=== PATIENT | female | born 1950 | race Caucasian/White ===

== ENCOUNTER 2017-12-10 16:19 | Inpatient (IN) | payer MEDICARE, OTHER ==
[~2017-12-10] VITALS: Ht 165.1 cm; Wt 70.3 kg
[~2017-12-10 16:19] MED LIST: ALBU90OI INH; ASPI325 PO; Amoxicillin500 MG PO; BUDE6HFA INH; BUPR150ER PO; DICL25ER PO; GABA300 PO; HYDR1TAB94; HYDR1TAB94 PO; Inderal40 MG PO; OXYACE5T PO; PRED20 PO; TRAM50 PO; TRAZ50 PO
[2017-12-15] MEDS ORDERED: TIOT18 INH (14:14)
[2017-12-15] MEDS ORDERED: VARE1 PO (14:15)
[2017-12-15] MEDS ORDERED: Hair, Skin & N1 EACH PO (14:16)
[2017-12-15] MEDS ORDERED: MAGNESIUM PO (14:17)
[2017-12-15] MEDS ORDERED: CALCIUM PO (14:17)
[2017-12-15] MEDS ORDERED: Hydrocodone-Ap1 EA23 PO (14:17)
[2017-12-26 05:48] LABS: BASOPHILS ABSOLUTE AUTO 0.01 K/mm3 (0.00-0.23); BASOPHILS PERCENT AUTO 0 % (0-2); EOSINOPHILS ABSOLUTE AUTO 0.01 K/mm3 (0.00-0.68); EOSINOPHILS PERCENT AUTO 0 % (0-6); Hematocrit 26.2 % (33.0-51.0); Hemoglobin 8.6 g/dL (11.5-16.0); IMMATURE GRAN ABSOLUTE AUTO 0.04 K/mm3 (0.00-0.10); IMMATURE GRAN PERCENT AUTO 0 % (0-1); LYMPHOCYTES PERCENT AUTO 6 % (21-46); MONOCYTES ABSOLUTE AUTO 0.74 K/mm3 (0.16-1.47); MONOCYTES PERCENT AUTO 6 % (4-13); Mean Corpuscular HGB 30.7 pg (26.0-34.0); Mean Corpuscular HGB Conc 32.8 g/dL (31.5-36.5); Mean Platelet Volume 9.4 fL (9.1-12.4); NEUTROPHILS PERCENT AUTO 87 % (41-73); Platelet Count 162 K/mm3 (150-400); RDW Coefficient Variation 12.7 % (11.7-14.2); RDW Standard Deviation 43.8 fL (35.1-46.3)
[2017-12-26 06:09] LABS: Mean Corpuscular Volume 94 fL (80-100)
[2017-12-26 06:15] LABS: Bun/Creatinine Ratio 17.6 (12.0-20.0); Calcium, Blood 8.2 mg/dL (8.5-10.1); Creatinine, Blood 1.02 mg/dL (0.40-1.00); Potassium, Blood 3.9 mmol/L (3.5-5.5)
[2017-12-27] MEDS ORDERED: ASPI325EC PO (15:02)
[2017-12-27] MEDS ORDERED: Percocet 5-3251 EACH PO (15:56)
== END 2017-12-27 16:35 | disposition home health service (06) | DRG 470 ==
LOC: SURS 12-25 09:00 → PRE IP 12-25 10:30 → SURS 12-25 15:53
PROVIDERS: Orthopaedic Surgery
PROC: BQ101ZZ Fluoroscopy of Right Hip using Low Osmolar Contrast (ICD-10-PCS; 2017-12-25)
PROC: 0SR904Z Replacement of Right Hip Joint with Ceramic on Polyethylene Synthetic Substitute, Open Approach (ICD-10-PCS; principal; 2017-12-25 10:30)
DX: M16.11 Unilateral primary osteoarthritis, right hip (principal); J44.9 Chronic obstructive pulmonary disease, unspecified; G89.29 Other chronic pain; M54.40 Lumbago with sciatica, unspecified side; Z79.899 Other long term (current) drug therapy; Z87.891 Personal history of nicotine dependence
CPT/HCPCS: 36415; 72170; 80048; 85025; 86850; 86900; 86901; 88300; 97110; 97116; 97162; 97530; C1776; G8978; G8979; G8980; J0171; J0690; J0735; J1170; J1885; J2250; J2370; J2405; J2710; J2795; J3010; J7120

== ENCOUNTER 2018-01-09 11:38 | Emergency (ER) | payer MEDICARE, OTHER ==
[~2018-01-09] VITALS: Ht 165.1 cm; Wt 70.3 kg
[~2018-01-09 11:38] MED LIST changes: +ASPI325EC PO; +CALCIUM PO; +Hair, Skin & N1 EACH PO; +Hydrocodone-Ap1 EA23 PO; +MAGNESIUM PO; +Percocet 5-3251 EACH PO; +TIOT18 INH; +VARE1 PO
[2018-01-09] MEDS ORDERED: BACL10 PO (13:27)
[2018-01-09] MEDS ORDERED: Voltaren100 GM TOP (13:27)
[2018-01-09] MEDS ORDERED: Hydrocodone-Ap1 EA23 PO (13:30)
[2018-01-09 13:43] LABS: BASOPHILS ABSOLUTE AUTO 0.06 K/mm3 (0.00-0.23); BASOPHILS PERCENT AUTO 1 % (0-2); EOSINOPHILS ABSOLUTE AUTO 0.12 K/mm3 (0.00-0.68); EOSINOPHILS PERCENT AUTO 2 % (0-6); Hemoglobin 11.1 g/dL (11.5-16.0); IMMATURE GRAN ABSOLUTE AUTO 0.02 K/mm3 (0.00-0.10); IMMATURE GRAN PERCENT AUTO 0 % (0-1); LYMPHOCYTES ABSOLUTE AUTO 1.66 K/mm3 (0.84-5.20); LYMPHOCYTES PERCENT AUTO 22 % (21-46); MONOCYTES ABSOLUTE AUTO 0.66 K/mm3 (0.16-1.47); MONOCYTES PERCENT AUTO 9 % (4-13); Mean Corpuscular HGB 30.2 pg (26.0-34.0); Mean Corpuscular HGB Conc 32.6 g/dL (31.5-36.5); Mean Corpuscular Volume 93 fL (80-100); Mean Platelet Volume 9.3 fL (9.1-12.4); NEUTROPHILS ABSOLUTE AUTO 4.96 K/mm3 (1.96-9.15); NEUTROPHILS PERCENT AUTO 66 % (41-73); Platelet Count 309 K/mm3 (150-400); RDW Coefficient Variation 12.6 % (11.7-14.2); Red Blood Cell Count 3.67 M/mm3 (3.80-5.20); White Blood Cell Count 7.48 K/mm3 (4.00-11.30)
[2018-01-09 14:02] LABS: Alanine Aminotransfer (ALT/SGP 16 U/L (12-78); Albumin, Blood 3.8 g/dL (3.4-5.0); Albumin/Globulin Ratio 1.1 (0.8-1.8); Alk Phos 129 U/L (50-136); Anion Gap 10 mmol/L (6-16); Aspartate Aminotrans (AST/SGOT 10 U/L (12-37); Bilirubin, Total 0.4 mg/dL (0.1-1.0); Blood Urea Nitrogen 17 mg/dL (8-24); Bun/Creatinine Ratio 19.8 (12.0-20.0); CO2, Blood 25 mmol/L (21-32); Calcium, Blood 9.2 mg/dL (8.5-10.1); Chloride, Blood 106 mmol/L (98-108); Creatinine, Blood 0.86 mg/dL (0.40-1.00); Globulin, Blood 3.6 g/dL (2.2-4.0); Glomerular Filtration Rate >60 (60-); Glucose, Blood 95 mg/dL (70-99); Potassium, Blood 3.8 mmol/L (3.5-5.5); Sodium, Blood 141 mmol/L (136-145); Total Protein, Blood 7.4 g/dL (6.4-8.2)
== END 2018-01-09 17:04 | disposition home or self-care (01) ==
LOC: ER 11:38
PROVIDERS: Emergency Medicine
DX: M96.842 Postprocedural seroma of a musculoskeletal structure following a musculoskeletal system procedure (principal); J44.9 Chronic obstructive pulmonary disease, unspecified; K21.9 Gastro-esophageal reflux disease without esophagitis; F32.9 Major depressive disorder, single episode, unspecified; F41.9 Anxiety disorder, unspecified; Z79.899 Other long term (current) drug therapy; Z79.51 Long term (current) use of inhaled steroids; Z96.641 Presence of right artificial hip joint
CPT/HCPCS: 36415; 72192; 80053; 85025; 85651; 86141; 99284

== ENCOUNTER → 2018-01-12 | Outpatient (CLI) | payer MEDICARE, OTHER ==
[~2018-01-12] MED LIST changes: +BACL10 PO; +Voltaren100 GM TOP
[2018-01-12 14:45] LABS: RBC Count, Synovial Fluid 10000 /mm3 (0-0); WBC Count, Synovial Fluid 2031 /mm3 (0-180)
[2018-01-12 15:10] LABS: Color, Synovial Fluid Yellow (None-P Yel); Lymphs, Synovial Fluid 99 % (0-15); Monocytes/Macrophages, Synovia 1 % (0-65)
[2018-01-12 15:11] LABS: Appearance, Synovial Fluid Clear (Clear)
[2018-01-12 15:12] LABS: Neutrophils, Synovial Fluid 0 % (0-24)
== END | disposition home or self-care (01) ==
LOC: LAB SHORT 14:00 → LAB 14:00
PROVIDERS: Orthopaedic Surgery
DX: M16.11 Unilateral primary osteoarthritis, right hip (principal); Z96.641 Presence of right artificial hip joint
CPT/HCPCS: 87070; 87075; 87205; 89051

== ENCOUNTER 2018-01-19 | Emergency (ER) | END 2018-01-19 16:24 | disposition home or self-care (01) ==

== ENCOUNTER 2018-05-07 21:41 | Observation (INO) | payer MEDICARE, OTHER ==
[~2018-05-07] VITALS: Ht 165.1 cm; Wt 68.0 kg
== END 2018-05-08 08:37 | disposition home or self-care (01) ==
LOC: ER 21:41 → EOR 21:42
DX: F10.129 Alcohol abuse with intoxication, unspecified (principal); S09.90XA Unspecified injury of head, initial encounter; S01.81XA Laceration without foreign body of other part of head, initial encounter; F17.210 Nicotine dependence, cigarettes, uncomplicated; Z79.899 Other long term (current) drug therapy; Z87.01 Personal history of pneumonia (recurrent); W08.XXXA Fall from other furniture, initial encounter
CPT/HCPCS: 12011; 70450; 72125; 90714; 99285-25; G0378

== ENCOUNTER 2019-01-27 10:26 | Inpatient (IN) | payer MEDICARE, OTHER ==
[~2019-01-27] VITALS: Ht 154.9 cm; Wt 77.2 kg
[~2019-01-27 10:26] MED LIST changes: +ALPR.25 PO; +Aspirin EC81 MG PO; +BENZ100A PO; +DULERA 200 MCG/13 GM INH; +NICO21TP TOP; +Oxycodone-Apap1 EAC3 PO; +PANT40 PO
[2019-01-27 11:17] LABS: PO2 Arterial 371 mmHg (80-100)
[2019-01-27 11:18] LABS: PCO2 Arterial 84 mmHg (35-45); pH Blood Arterial 7.07 (7.35-7.45)
--- NOTE | 2019-01-27 12:17 | NUR ---
ADMIT: PT ADMITTED TO ICU 7 FROM ED. PT INTUBATED, WAKING UP AND GETTING AGITATED SO PROPOFOL INCREASED. OGT HOOKED UP TO LIS. DR. ROSEN NOTIFIED OF CONSULT AND CAME TO THE BEDSIDE. PT'S SO RASHID PHONED AND WAS GIVEN AN UPDATE. PT RESTING QUIETLY NOW. CONTINUE TO MONITOR.
[2019-01-27] MEDS ORDERED: SERT50 PO (12:45)
[2019-01-27 12:55] LABS: BASOPHILS ABSOLUTE AUTO 0.04 K/mm3 (0.00-0.23); BASOPHILS PERCENT AUTO 0 % (0-2); EOSINOPHILS ABSOLUTE AUTO 0.11 K/mm3 (0.00-0.68); EOSINOPHILS PERCENT AUTO 1 % (0-6); Hematocrit 42.9 % (33.0-51.0); IMMATURE GRAN ABSOLUTE AUTO 0.15 K/mm3 (0.00-0.10); IMMATURE GRAN PERCENT AUTO 1 % (0-1); LYMPHOCYTES PERCENT AUTO 8 % (21-46); MONOCYTES ABSOLUTE AUTO 1.15 K/mm3 (0.16-1.47); MONOCYTES PERCENT AUTO 5 % (4-13); Mean Corpuscular HGB Conc 30.3 g/dL (31.5-36.5); Mean Corpuscular Volume 99 fL (80-100); Mean Platelet Volume 9.8 fL (9.1-12.4); NEUTROPHILS ABSOLUTE AUTO 18.21 K/mm3 (1.96-9.15); NEUTROPHILS PERCENT AUTO 85 % (41-73); Platelet Count 226 K/mm3 (150-400); RDW Coefficient Variation 12.8 % (11.7-14.2); Red Blood Cell Count 4.34 M/mm3 (3.80-5.20); White Blood Cell Count 21.36 K/mm3 (4.00-11.30)
[2019-01-27 13:12] LABS: Alanine Aminotransfer (ALT/SGP 22 U/L (12-78); Albumin, Blood 3.8 g/dL (3.4-5.0); Albumin/Globulin Ratio 1.1 (0.8-1.8); Alk Phos 81 U/L (50-136); Anion Gap 8 mmol/L (6-16); Aspartate Aminotrans (AST/SGOT 18 U/L (12-37); Bilirubin, Total 0.4 mg/dL (0.1-1.0); Blood Urea Nitrogen 18 mg/dL (8-24); Bun/Creatinine Ratio 19.5 (12.0-20.0); CO2, Blood 22 mmol/L (21-32); Chloride, Blood 110 mmol/L (98-108); Creatinine, Blood 0.93 mg/dL (0.40-1.00); Globulin, Blood 3.6 g/dL (2.2-4.0); Glomerular Filtration Rate >60 (60-); Glucose, Blood 216 mg/dL (70-99); Potassium, Blood 3.8 mmol/L (3.5-5.5); Sodium, Blood 140 mmol/L (136-145); Total Protein, Blood 7.4 g/dL (6.4-8.2)
[2019-01-27 14:02] LABS: pH Blood Arterial 7.22 (7.35-7.45)
[2019-01-27 14:03] LABS: PCO2 Arterial 53.2 mmHg (35-45); PO2 Arterial 104 mmHg (80-100)
--- NOTE | 2019-01-27 15:33 | NUR ---
PT'S SBP HAS DROPPED INTO THE 80S WITH MAP IN THE 50S. PROPOFOL TITRATED DOWN AND BP REMAINS LOW. DR. ROSEN NOTIFIED AND ORDER RECEIVED FOR 500ML NS BOLUS, INFUSING NOW.
[2019-01-27 17:03] LABS: PCO2 Arterial 43.6 mmHg (35-45); PO2 Arterial 77.4 mmHg (80-100)
[2019-01-27 17:04] LABS: pH Blood Arterial 7.24 (7.35-7.45)
--- NOTE | 2019-01-27 17:25 | NUR ---
PT'S BP DROPPED INTO THE 80S AGAIN WITH MAP IN THE 50S. DR. ROSEN NOTIFIED AND ORDER RECEIVED FOR 1L LR BOLUS.
--- NOTE | 2019-01-27 17:41 | NUR ---
SHIFT SUMMARY: PT HAS BEEN SEDATED ON THE VENT SINCE ADMIT. SHE OPENS HER EYES TO MINIMAL TACTILE STIMULATION AND APPEARS ANXIOUS WHEN AWAKE. THIS EVENING HER BLOOD PRESSURE HAS BEEN LOW WHEN LEFT ALONE AND SHE SLEEPS, BUT WHEN SHE IS AWAKE SBP JUMPS TO 140S. PT RECEIVED 500ML BOLUS AND 1L BOLUS INFUSING NOW. PT'S HR CAME DOWN FROM ST TO SR IN THE 90S. LUNGS STILL HAVE COARSE WHEEZES AND HAS INCREASED AIR MOVEMENT SINCE ADMIT. HILLIARD ONLY PUT OUT 130ML OF URINE, DR. ROSEN AWARE. PT'S SO AND ROOMMATE CAME BY AND WERE UPDATED BY NURSING STAFF AND DR. ROSEN.
--- NOTE | 2019-01-27 19:00 | NUR ---
ASSUMING CARE OF PT AT THIS TIME. PT REPORT RECEIVED AT BEDSIDE WITH OFFGOING NURSE, MICKEY CRUZ. PT LAYING IN BED, INTUBATED, SEDATED UPON ENTERING THE ROOM. VS STABEL - SEE VS FS. PT DOES NOT APPEAR TO BE IN DISTRESS AT THIS TIME. WILL REVIEW PLAN OF CARE.
--- NOTE | 2019-01-27 19:15 | NUR ---
ASSESSMENT PT CALM, COOPERATIVE, RESPONDS TO PAINFUL STIMULI, OPENS EYES TO PRESSURE, DOES NOT FOLLOW COMMANDS, LOCALIZES PAIN, DOES NOT NOD HEAD Y/N TO QUESTIONS, SEDATED. PROPOFOL DRIP AT 35 MCG/KG/MIN - WILL TITRATE TO EFFECT. ANAMIKA SENSATION. PT YUSUF. NO WEAKNESS NOTED. PT IN BILAT WRIST RESTRAINTS TO PROTECT VITAL LINES/CORDS/TUBES AND TO PROTECT FROM SELF-EXTUBATION. NO S/SX OF PAIN/DISCOMFORT NOTED. EXP WHEEZING T/O, COARSE LOWER LOBES. VENT SETTINGS: AC 20, TV 350, PEEP 5, FIO2 30%. OXY SAT >95%. RR 20'S. SUCTION VIA ETT: SMALL AMOUNTS OF THIN CLEAR SECRETIONS. AFEBRILE. NSR. HR 90'S. BP STABLE - SEE VS FS. STRONG PULSES. WARM, PINK SKIN. HYPOACTIVE BT X4 QUADRANTS. ABD SOFT, NOTENDER (NO FACIAL GRIMACING WITH PALPATION), MILD DIST. OG TO LIS: NO OUTPUT. NO BM. NPO. F/C: CLEAR, YELLOW URINE. PIV X2. NS AT 150 ML/HR.
--- NOTE | 2019-01-28 02:28 | NUR ---
SHIFT ASSESSMENT / TRANSFER OF CARE NO ACUTE CHANGES NOTED T/O SHIFT. INCREASED AGITATION, ANXIETY, RESTLESSNESS, AND PULLING ON BILAT WRIST RESTRAINTS TOWARDS ETT WITH DECREASED SEDATION AND INCREASED STIMULI. PT RESPONDS TO VERBAL AND PAINFUL STIMULI, OPENS EYES TO VERBAL STIMULI, OCC SPONT OPENS EYES, DOES NOT FOLLOW COMMANDS, DOES NOT NOD HEAD Y/N TO QUESTIONS, LOCALIZES PAIN. PROPOFOL DRIP AT 55 MCG/KG/MIN - CONT TO TITRATE TO EFFECT. ATIVAN PRN ADMINISTERED. ANAMIKA SENSATION. PT YUSUF. NO WEAKNES SNOTED. PT IN BILAT WRIST RESTRAINTS TO PROTECT VITAL LINES/CORDS/TUBES AND TO PROTECT FROM SELF-EXTUBATION. NO S/SX OF PAIN/DISCOMFORT NOTED. EXP WHEEZING T/O, COARSE LOWER LOBES AT BEGINNING OF THE SHIFT. CURRENTLY, LUNGS CLEAR T/O, LOWE RLOBES DIMINISHED. VENT SETTINGS: AC 20, TV 350, PEEP 5, FIO2 25%. OXY SAT >90%. RR 20'S. SBT TO BE COMPLETED BY RT THIS AM. SUCTION VIA ETT: SMALL AMOUNTS OF THIN CLEAR SECRETIONS. AFEBRILE. NSR TO ST. HR 90'S TO 100'S. BP STABLE - SEE VS FS. STRONG PULSES. WARM, PINK SKIN. HYPOACTIVE BT X4 QUADRATNS. ABD SOFT, NONTENDER (NO FACIAL GRIMACING WITH PALPATION), MILD DIST. OG TO LIS: BILE SECRETIONS. NO BM. NPO. F/C: CLEAR, YELLOW URINE. PIV X2. NS AT 150 ML/HR. PT REPORT PROVIDED TO NANCY SHEIKH AT BEDSIDE.
--- NOTE | 2019-01-28 03:09 | NUR ---
TRANSFER OF CARE/ ASSUMED PT CARE INTUBATED/SEDATED. VENT AC 20, TV 350, FIO2 25%, PEEP 5. PROPOFOL INFUSING AT 55MCG/KG/MIN. PT WITHDRAWALS FROM NOXIOUS STIMULI. BECOMES VERY AGITATED AND ANXIOUS EASILY. PT IS HIGH RISK FOR SELF EXTUBATION; BILATERAL SOFT WRIST RESTRAINTS REMAIN IN PLACE. LUNG SOUNDS REMAIN CLEAR TO BILATERAL UPPER LOBES AND DIMINISHED TO BILATERAL LOWER LOBES. PT APPEARS COMFORATBLE AT THIS TIME.
[2019-01-28 03:31] LABS: BASOPHILS ABSOLUTE AUTO 0.02 K/mm3 (0.00-0.23); BASOPHILS PERCENT AUTO 0 % (0-2); EOSINOPHILS PERCENT AUTO 0 % (0-6); Hematocrit 32.5 % (33.0-51.0); Hemoglobin 10.2 g/dL (11.5-16.0); IMMATURE GRAN ABSOLUTE AUTO 0.07 K/mm3 (0.00-0.10); IMMATURE GRAN PERCENT AUTO 1 % (0-1); LYMPHOCYTES ABSOLUTE AUTO 0.63 K/mm3 (0.84-5.20); LYMPHOCYTES PERCENT AUTO 5 % (21-46); MONOCYTES ABSOLUTE AUTO 0.17 K/mm3 (0.16-1.47); MONOCYTES PERCENT AUTO 1 % (4-13); Mean Corpuscular HGB Conc 31.4 g/dL (31.5-36.5); NEUTROPHILS PERCENT AUTO 93 % (41-73); Platelet Count 177 K/mm3 (150-400); RDW Coefficient Variation 12.9 % (11.7-14.2); RDW Standard Deviation 45.4 fL (35.1-46.3); White Blood Cell Count 13.29 K/mm3 (4.00-11.30)
[2019-01-28 03:32] LABS: Mean Corpuscular Volume 96 fL (80-100)
[2019-01-28 03:53] LABS: Alanine Aminotransfer (ALT/SGP 17 U/L (12-78); Albumin, Blood 3.1 g/dL (3.4-5.0); Albumin/Globulin Ratio 1.1 (0.8-1.8); Alk Phos 57 U/L (50-136); Anion Gap 11 mmol/L (6-16); Aspartate Aminotrans (AST/SGOT 5 U/L (12-37); Bilirubin, Total 0.2 mg/dL (0.1-1.0); Blood Urea Nitrogen 17 mg/dL (8-24); Bun/Creatinine Ratio 22.9 (12.0-20.0); CO2, Blood 20 mmol/L (21-32); Calcium, Blood 8.1 mg/dL (8.5-10.1); Chloride, Blood 111 mmol/L (98-108); Creatinine, Blood 0.74 mg/dL (0.40-1.00); Globulin, Blood 2.7 g/dL (2.2-4.0); Glomerular Filtration Rate >60 (60-); Glucose, Blood 142 mg/dL (70-99); Potassium, Blood 4.3 mmol/L (3.5-5.5); Sodium, Blood 142 mmol/L (136-145); Total Protein, Blood 5.8 g/dL (6.4-8.2)
[2019-01-28 05:24] LABS: PCO2 Arterial 40.3 mmHg (35-45); PO2 Arterial 80.9 mmHg (80-100); pH Blood Arterial 7.32 (7.35-7.45)
--- NOTE | 2019-01-28 05:34 | NUR ---
SBT SEDATION TURNED OFF; PT AWAKE AND ABLE TO FOLLOW COMMANDS SHORTLY AFTER. STARTED ON PRESSURE SUPPORT 7/5, BUT PT WASN'T ABLE PULL TV GREATER THAN 250. THEREFORE, PRESSURE SUPPORT CHANGED TO 10/5 AND PT WAS ABLE TO GET TV 300 AND GREATER. VS REMAINED STABLE T/O TRIAL. PT DID START GAGGING ON THE TUBE AT ONE POINT IN WHICH IT TRIGGERED HER TO HAVE A COUGHING FIT WHERE SHE WASN'T PULLING LARGE ENOUGH TV; MEDICATED WITH FENTANYL TO HELP PT RELAX FOR REST OF SBT; EFFECTIVE. LUNG SOUNDS REMAIN CLEAR TO BILATERAL UPPER LOBES AND DIMINISHED TO BILATERAL LOWER LOBES. RESTARTED PROPOFOL AT 40MCG/KG/HR ONCE SBT WAS COMPLETE.
--- NOTE | 2019-01-28 05:40 | NUR ---
END OF SHIFT SUMMARY PT ALERT TO SELF. REMAINS INTUBATED AND SEDATED. ABLE TO OPEN EYES SPONTANEOUSLY. SHAKES HEAD YES/NO TO QUESTIONS APPROPRIATELY AND FOLLOWS COMMANDS. VENT SETTINGS; AC 20, TV 350, FIO2 30%, PEEP 5. PROPOFOL INCREASED TO 50MCG/KG/HR. NS INFUSING AT 150MLS/HR. HILLIARD CATH IS PATENT AND DRAINING TO GRAVITY. PT SHOOK HEAD "NO" TO PAIN. PT APPEARS COMFORTABLE AT THIS TIME. WILL CONTINUE TO MONITOR UNTIL REPORT IS HANDED OFF TO DAY RN.
--- NOTE | 2019-01-28 07:33 | NUR ---
BEGINNING OF SHIFT Assumed care at 0700 with Philippe CRUZ. Report recieved from Krystin CRUZ. Pt on ventilator AC 20, TV 350, PEEP 5, FiO2 20%. 7.5 cm ET tube 24 cm at lip. OG tube to low intermittent suction with a small amount of billious drainage in line. Bowen catheter in place draining clear yellow urine. Pt opens eyes to verbal stimulus and is able to follow directions with propofol at 55 mcg/kg/min. Propofol turned off for 10 minutes. Pt restless, resisting repositioning, and opening eyes spontaneously. Propofol restarted at 55 mcg/kg/min. Skin C/D/I. Bilateral SWW in place. Removed during repositioning and skin assessed. SWW reattached. Siderails x [address] No family in room at this time.
--- NOTE | 2019-01-28 09:23 | NUR ---
UPDATE Propofol increased to 65 mcg/kg/min due to increased pt agitation. Pt continuously uses tongue to place pressure on ET tube. Pt restless in bed. Dr Cheung in to see patient. States plan for extubation.
--- NOTE | 2019-01-28 10:10 | NUR ---
EXTUBATION Propofol turned off at 0915. In-room stimulus decreased. Pt tolerated intubation and ventilation well without propofol until time of extubation. Pt extuabated at 0945 by RT Serrato, with this RN and Philippe RN at beside. Pt tolerated extuation well. OG tube clamped and removed at time of extuabtion as well. Pt placed on 4 LPM NC. O2 sats 98%. Pt was titrated to room air by 0954. Pt continues on room air with O2 sats at 93%. Dr Cheung stated goal O2 sat of 88% or greater. Pt is alert, but drowsy. Talking to staff. Oriented to self and place. States current date is "January 26 2019". Pt follows directions well and makes needs known. Pt requested warm blanket. This RN discussed reason for hospitalization and plan of care with patient. Pt verbalizes understanding. Pt is unable to provide name of dentist. States her pharmacy is "[facility]". This RN asked about pt's living situation. She states she lives in a large apartment with her spouse and best friend, Gary. Her spouse of 10 years, "Veto", is a disabled vet. Pt is resting in bed at this time. Bed alarm applied.
--- NOTE | 2019-01-28 11:30 | NUR ---
UPDATE Bowen catheter discontinued. Attends in place. Pt assisted to sit on edge of bed, she tolerated this well. Pt assisted to sit in recliner with two person assist. Trialed water and ice chips with patient. No coughing, gagging, or choking noted with PO intake. Pt requested tapioca pudding, she tolerated this well. Pt remains drowsy and mildly confused. Pt able to state "January 28" as current date. Pt verbalizes misunderstanding of situation and becomes tearful when this RN tells the patient she was hospitalized overnight. Pt verbalizes frustration with feeling confused. This RN assisted pt to place call to her . Pt spoke with him for about three minutes. Pt mentions that she is a current smoker, but states she does not smoke every day. Pt states a pack of cigarettes lasts about one week. Pt states she also uses "Step 2 nicotine patches". When asked if the dose is 21 mg, pt states "no". When asked if the dose is 14 mg, pt states "yes". Pt has productive cough with hopkins sputum. Nicotine patch and PO intake discussed with Dr Cheung. IV fluids discontinued, nicotine patch ordered. Pt also changed to medical floor status without telemetry. Continuous heart monitoring removed. Dr Cerda in to see patient. Update given to provider.
--- NOTE | 2019-01-28 13:58 | NUR ---
TRANSFER TO MEDICAL FLOOR Pt departed from ICU at 1340, accompanied by Philippe CRUZ. At time of transfer, pt on room air. Pt taken via wheel chair to room 309. Telephone report given to Kristy CRUZ. Chart, belongings, and medications transferred with patient.
--- NOTE | 2019-01-28 14:01 | NUR ---
PT TRANSFERRED: PT TRANSFERRED VIA W/C TO 309 BY THIS RN. ALL BELONGINGS, FOOD TRAY SENT WITH PT. PT ASSISTED INTO BED IN NEW , ORIENTED TO . NANCY DUMONT IS NOW ASSUMING CARE OF PT. CALL LIGHT WITHIN REACH.
--- NOTE | 2019-01-28 14:51 | NUR ---
PATIENT ARRIVED TO THE UNIT VIA W/C. ORIENTED TO SELF. NEEDS REMINDERS OF YEAR, CURRENT LOCATION. ORIENTED TO PRESIDENT. SOB WITH MOVEMENT AND ACTIVITY. UNAWARE OF CARE DEFICITS.
[2019-01-28] MEDS ORDERED: GABA600 PO (16:25)
--- NOTE | 2019-01-28 17:26 | NUR ---
SHIFT SUMMARY PATIENT IS PROGRESSIVELY BECOMING MORE ALERT. SHE IS NOW ORIENTED TO PLACE, AND WHO CURRENT PRESIDENT IS. FRIENDS VISITING. NOTIFIED OF HER REQUEST FOR HOME MEDICATIONS. MED REC UPDATED TO REFLECT HER PHARMACY LIST.
--- NOTE | 2019-01-29 04:45 | NUR ---
SHIFT SUMMARY: 68 Y/O FEMALE RESTED COMFORTABLY ALL SHIFT WITH NO RESPIRATORY DISTRESS NOTED. PT AMBULATED BATHROOM AND BACK TO VOID WITHOUT ISSUE. PTS LUNG SOUNDS ARE COARSE THROUGHOUT WITH OCCASIONAL NON PRODUCTIVE COUGH. PT ALERT AND ORIENTED X 3. PT DENIES PAIN OR NAUSEA. PTS BED LOW POSITION, CALL LIGHT AT SIDE.
[2019-01-29 05:05] LABS: Hematocrit 33.6 % (33.0-51.0); Hemoglobin 10.6 g/dL (11.5-16.0); Mean Corpuscular HGB 29.9 pg (26.0-34.0); Mean Corpuscular HGB Conc 31.5 g/dL (31.5-36.5); Mean Corpuscular Volume 95 fL (80-100); Mean Platelet Volume 10.1 fL (9.1-12.4); Platelet Count 188 K/mm3 (150-400); RDW Coefficient Variation 13.3 % (11.7-14.2); RDW Standard Deviation 47.2 fL (35.1-46.3); Red Blood Cell Count 3.54 M/mm3 (3.80-5.20); White Blood Cell Count 12.52 K/mm3 (4.00-11.30)
[2019-01-29 05:23] LABS: Albumin, Blood 3.5 g/dL (3.4-5.0); Anion Gap 7 mmol/L (6-16); Blood Urea Nitrogen 21 mg/dL (8-24); Bun/Creatinine Ratio 28.1 (12.0-20.0); CO2, Blood 25 mmol/L (21-32); Chloride, Blood 111 mmol/L (98-108); Creatinine, Blood 0.75 mg/dL (0.40-1.00); Glomerular Filtration Rate >60 (60-); Glucose, Blood 138 mg/dL (70-99); Phosphorus, Blood 2.2 mg/dL (2.5-4.9); Potassium, Blood 4.2 mmol/L (3.5-5.5); Sodium, Blood 143 mmol/L (136-145)
[2019-01-29] MEDS ORDERED: FAMO20 PO (14:15)
[2019-01-29] MEDS ORDERED: PRED10 PO (14:19)
--- NOTE | 2019-01-29 15:46 | NUR ---
PATIENT DISCHARGE: PATIENT DISCHARGED TO HOME THIS SHIFT. MEDICATION RECONCILIATION COMPLETED; MED LIST FAXED TO [facility]. DISCHARGE EDUCATION COMPLETED WITH PATIENT. PATIENT DECLINED WHEELCHAIR TO EXIT; PATIENT DEPARTED MEDICAL FLOOR c [id number] AT 1545. PATIENT DEPARTED [facility] VIA PRIVATE AUTO.
== END 2019-01-29 15:44 | disposition home or self-care (01) | DRG 915 ==
LOC: ER 10:26 → ICUW 10:38 → MEDS 10:38 → ICUE 11:45 → MEDS 01-28 13:55
PROVIDERS: Emergency Medicine; Internal Medicine; Internal Medicine Critical Care Medicine; ADMIT Internal Medicine
PROC: 0BH17EZ Insertion of Endotracheal Airway into Trachea, Via Natural or Artificial Opening (ICD-10-PCS; principal; 2019-01-27)
PROC: 5A1935Z Respiratory Ventilation, Less than 24 Consecutive Hours (ICD-10-PCS; 2019-01-27)
DX: T88.6XXA Anaphylactic reaction due to adverse effect of correct drug or medicament properly administered, initial encounter (principal); J96.01 Acute respiratory failure with hypoxia; J96.02 Acute respiratory failure with hypercapnia; J44.1 Chronic obstructive pulmonary disease with (acute) exacerbation; T36.0X5A Adverse effect of penicillins, initial encounter; F17.210 Nicotine dependence, cigarettes, uncomplicated; I10 Essential (primary) hypertension; F32.9 Major depressive disorder, single episode, unspecified; F41.9 Anxiety disorder, unspecified; M50.10 Cervical disc disorder with radiculopathy, unspecified cervical region; E83.39 Other disorders of phosphorus metabolism; E78.5 Hyperlipidemia, unspecified; K21.9 Gastro-esophageal reflux disease without esophagitis
CPT/HCPCS: 31500; 31720; 36415; 36600; 51702; 71045; 80053; 80069; 82803; 85025; 85027; 94002; 94003; 94640; 94644; 94760; 96374; 96375; 99291-25; J0330; J1200; J1650; J1940; J2060; J2250; J2704; J2930; J3010; J7030; J7040; J7050; J7060; J7120; J7512

== ENCOUNTER → 2019-09-23 | Outpatient (CLI) | payer MEDICARE, OTHER ==
[~2019-09-23] MED LIST changes: +FAMO20 PO; +GABA600 PO; +PRED10 PO; +SERT50 PO
[2019-09-23 17:20] LABS: U Amphetamine Screen Not Detected; U Barbituate Screen Not Detected; U Benzodiazapine Screen Not Detected; U Buprenorphine Screen Not Detected; U Cannabinoids Screen Not Detected; U Cocaine Screen Not Detected; U Methadone Screen Not Detected; U Methamphetamine Screen Not Detected; U Opiates Screen Not Detected; U Oxycodone Screen DETECTED; U Phencyclidine Screen Not Detected; U Propoxyphene Screen Not Detected
== END | disposition home or self-care (01) ==
LOC: LAB SHORT 15:37 → LAB 15:37
PROVIDERS: Family Medicine
DX: Z51.81 Encounter for therapeutic drug level monitoring (principal); Z79.899 Other long term (current) drug therapy

== ENCOUNTER → 2020-03-14 | Outpatient (CLI) | payer MEDICARE, OTHER ==
[2020-03-14 17:43] LABS: U Amphetamine Screen Not Detected; U Barbituate Screen Not Detected; U Benzodiazapine Screen Not Detected; U Cocaine Screen Not Detected; U Methadone Screen Not Detected; U Methamphetamine Screen Not Detected
[2020-03-14 17:44] LABS: U Buprenorphine Screen Not Detected; U Cannabinoids Screen Not Detected; U Opiates Screen Not Detected; U Oxycodone Screen Not Detected; U Phencyclidine Screen Not Detected; U Propoxyphene Screen Not Detected
== END | disposition home or self-care (01) ==
LOC: LAB 11:33 → LAB SHORT 11:33
PROVIDERS: Family Medicine
DX: Z51.81 Encounter for therapeutic drug level monitoring (principal); Z79.891 Long term (current) use of opiate analgesic

== ENCOUNTER → 2020-06-08 | Outpatient (CLI) | payer MEDICARE, OTHER ==
[2020-06-08 18:15] LABS: U Amphetamine Screen Not Detected; U Barbituate Screen Not Detected; U Benzodiazapine Screen Not Detected; U Buprenorphine Screen Not Detected; U Cannabinoids Screen Not Detected; U Cocaine Screen Not Detected; U Methadone Screen Not Detected; U Methamphetamine Screen Not Detected; U Opiates Screen Not Detected; U Oxycodone Screen Not Detected; U Phencyclidine Screen Not Detected; U Propoxyphene Screen Not Detected
== END | disposition home or self-care (01) ==
LOC: LAB 16:38 → LAB SHORT 16:38
PROVIDERS: Family Medicine
DX: R82.5 Elevated urine levels of drugs, medicaments and biological substances (principal)

== ENCOUNTER → 2020-10-03 | Outpatient (CLI) | payer MEDICARE, OTHER ==
[2020-10-03 13:54] LABS: U Amphetamine Screen Not Detected; U Barbituate Screen Not Detected; U Benzodiazapine Screen Not Detected; U Buprenorphine Screen Not Detected; U Cannabinoids Screen Not Detected; U Cocaine Screen Not Detected; U Methadone Screen Not Detected; U Methamphetamine Screen Not Detected; U Opiates Screen Not Detected; U Oxycodone Screen DETECTED; U Phencyclidine Screen Not Detected; U Propoxyphene Screen Not Detected
== END | disposition home or self-care (01) ==
LOC: LAB SHORT 11:50 → LAB 11:50
PROVIDERS: Family Medicine
DX: Z51.81 Encounter for therapeutic drug level monitoring (principal); Z79.891 Long term (current) use of opiate analgesic

== ENCOUNTER 2020-10-17 13:32 | Day surgery (SDC) | payer MEDICARE, OTHER | END 2020-10-17 15:47 | disposition home or self-care (01) | LOC: ORSCSDS 13:32 | PROVIDERS: Surgery | PROC: 0DJD8ZZ Inspection of Lower Intestinal Tract, Via Natural or Artificial Opening Endoscopic (ICD-10-PCS; principal; 2020-10-17 15:15) | DX: Z12.11 Encounter for screening for malignant neoplasm of colon (principal); Z86.010 Personal history of colon polyps; F17.210 Nicotine dependence, cigarettes, uncomplicated; J44.9 Chronic obstructive pulmonary disease, unspecified; K21.9 Gastro-esophageal reflux disease without esophagitis; F41.9 Anxiety disorder, unspecified; Z79.899 Other long term (current) drug therapy | CPT/HCPCS: J2704; J7120 ==

== ENCOUNTER 2020-10-20 11:01 | Day surgery (SDC) | payer MEDICARE, OTHER ==
[~2020-10-20] VITALS: Ht 165.1 cm; Wt 72.9 kg
--- NOTE | 2020-10-20 13:09 | NUR ---
10/20/[address] IN ROOM TO CONSULT WITH PATIENT ABOUT PROCEDURE, PATIENT AND DR GOLDBERG AGREED THAT THE PROCEDURE IS A GOOD OPTION FOR THE PATIENT, CONSENT OBTAINED, VS STABLE, PROCEDURE COMPLETE USING STERILE PROCEDURE, VS REMAIN STABLE, PATIENT TOLERATED WELL, DISCHARGE INSTRUCTIONS PROVIDED, NO FURTHER QUESTIONS NOTED BY THE PATIENT PATEINT LEFT FACILITY AMBULATORY AND IN A TAXI
== END 2020-10-20 12:47 | disposition home or self-care (01) ==
LOC: ORSCSDS 11:01
PROVIDERS: Anesthesiology
PROC: 3E0R33Z Introduction of Anti-inflammatory into Spinal Canal, Percutaneous Approach (ICD-10-PCS; principal; 2020-10-20 12:30)
DX: M54.16 Radiculopathy, lumbar region (principal); M54.5 Low back pain; F32.9 Major depressive disorder, single episode, unspecified; J44.9 Chronic obstructive pulmonary disease, unspecified; E78.00 Pure hypercholesterolemia, unspecified; K21.9 Gastro-esophageal reflux disease without esophagitis; F17.210 Nicotine dependence, cigarettes, uncomplicated; Z79.899 Other long term (current) drug therapy
CPT/HCPCS: J1040

== ENCOUNTER → 2020-12-20 | Outpatient (CLI) | payer MEDICARE, OTHER ==
[2020-12-20 15:41] LABS: U Amphetamine Screen Not Detected; U Barbituate Screen Not Detected; U Benzodiazapine Screen Not Detected; U Buprenorphine Screen Not Detected; U Cannabinoids Screen Not Detected; U Cocaine Screen Not Detected; U Methadone Screen Not Detected; U Methamphetamine Screen Not Detected; U Opiates Screen Not Detected; U Oxycodone Screen DETECTED; U Phencyclidine Screen Not Detected; U Propoxyphene Screen Not Detected
== END | disposition home or self-care (01) ==
LOC: LAB SHORT 12:39
PROVIDERS: Family Medicine
DX: Z51.81 Encounter for therapeutic drug level monitoring (principal); Z79.899 Other long term (current) drug therapy

== ENCOUNTER → 2021-04-27 | Outpatient (CLI) | payer OTHER ==
[2021-04-27 11:40] LABS: U Amphetamine Screen Not Detected; U Barbituate Screen Not Detected; U Benzodiazapine Screen Not Detected; U Buprenorphine Screen Not Detected; U Cannabinoids Screen Not Detected; U Cocaine Screen Not Detected; U Methadone Screen Not Detected; U Methamphetamine Screen Not Detected; U Opiates Screen Not Detected; U Oxycodone Screen DETECTED; U Phencyclidine Screen Not Detected; U Propoxyphene Screen Not Detected
== END | disposition home or self-care (01) ==
LOC: LAB 10:29 → LAB SHORT 10:29
PROVIDERS: Family Medicine
DX: Z51.81 Encounter for therapeutic drug level monitoring (principal); Z79.891 Long term (current) use of opiate analgesic

== ENCOUNTER → 2021-08-06 | Outpatient (CLI) | payer OTHER ==
[2021-08-07 16:50] LABS: U Amphetamine Screen Not Detected; U Barbituate Screen Not Detected; U Benzodiazapine Screen Not Detected; U Buprenorphine Screen Not Detected; U Cannabinoids Screen Not Detected; U Cocaine Screen Not Detected; U Methadone Screen Not Detected; U Methamphetamine Screen Not Detected; U Opiates Screen Not Detected; U Oxycodone Screen DETECTED; U Phencyclidine Screen Not Detected; U Propoxyphene Screen Not Detected
== END | disposition home or self-care (01) ==
LOC: LAB SHORT 11:00
PROVIDERS: Family Medicine
DX: Z51.81 Encounter for therapeutic drug level monitoring (principal); Z79.891 Long term (current) use of opiate analgesic

== ENCOUNTER 2021-10-16 15:05 | Day surgery (SDC) | payer OTHER ==
[~2021-10-16] VITALS: Ht 165.1 cm; Wt 79.2 kg
[2021-10-16] MEDS ORDERED: GABA300 PO (16:19)
[2021-10-16] MEDS ORDERED: AMLO10 PO (16:19)
== END 2021-10-16 17:38 | disposition home or self-care (01) ==
LOC: ORSCSDS 15:05
PROVIDERS: Anesthesiology
PROC: 3E0R33Z Introduction of Anti-inflammatory into Spinal Canal, Percutaneous Approach (ICD-10-PCS; principal; 2021-10-16 16:15)
DX: M51.17 Intervertebral disc disorders with radiculopathy, lumbosacral region (principal); M48.061 Spinal stenosis, lumbar region without neurogenic claudication; J44.9 Chronic obstructive pulmonary disease, unspecified; I10 Essential (primary) hypertension; F32.A Depression, unspecified; E78.00 Pure hypercholesterolemia, unspecified; K21.9 Gastro-esophageal reflux disease without esophagitis; Z87.891 Personal history of nicotine dependence; Z79.899 Other long term (current) drug therapy
CPT/HCPCS: J1040

== ENCOUNTER → 2021-11-06 | Outpatient (CLI) | payer OTHER ==
[~2021-11-06] MED LIST changes: +AMLO10 PO
[2021-11-06 16:02] LABS: U Amphetamine Screen Not Detected; U Barbituate Screen Not Detected; U Benzodiazapine Screen Not Detected; U Buprenorphine Screen Not Detected; U Cannabinoids Screen Not Detected; U Cocaine Screen Not Detected; U Methadone Screen Not Detected; U Methamphetamine Screen Not Detected; U Opiates Screen Not Detected; U Oxycodone Screen Not Detected; U Phencyclidine Screen Not Detected; U Propoxyphene Screen Not Detected
== END | disposition home or self-care (01) ==
LOC: LAB 15:16 → LAB SHORT 15:16
PROVIDERS: Family Medicine
DX: Z51.81 Encounter for therapeutic drug level monitoring (principal); Z79.891 Long term (current) use of opiate analgesic

== ENCOUNTER → 2022-02-05 | Outpatient (CLI) | payer OTHER ==
[2022-02-05 16:02] LABS: U Amphetamine Screen Not Detected; U Barbituate Screen Not Detected; U Benzodiazapine Screen Not Detected; U Buprenorphine Screen Not Detected; U Cannabinoids Screen Not Detected; U Cocaine Screen Not Detected; U Methadone Screen Not Detected; U Methamphetamine Screen Not Detected; U Opiates Screen Not Detected; U Oxycodone Screen DETECTED; U Phencyclidine Screen Not Detected; U Propoxyphene Screen Not Detected
== END | disposition home or self-care (01) ==
LOC: LAB SHORT 12:00 → LAB 12:00
PROVIDERS: Family Medicine
DX: Z51.81 Encounter for therapeutic drug level monitoring (principal); Z79.899 Other long term (current) drug therapy

== ENCOUNTER → 2022-05-01 | Outpatient (CLI) | payer OTHER ==
[2022-05-01 17:47] LABS: U Amphetamine Screen Not Detected; U Barbituate Screen Not Detected; U Benzodiazapine Screen Not Detected; U Buprenorphine Screen Not Detected; U Cannabinoids Screen Not Detected; U Cocaine Screen Not Detected; U Methadone Screen Not Detected; U Methamphetamine Screen Not Detected; U Opiates Screen Not Detected; U Oxycodone Screen DETECTED; U Phencyclidine Screen Not Detected; U Propoxyphene Screen Not Detected
== END | disposition home or self-care (01) ==
LOC: LAB 14:50 → LAB SHORT 14:50
PROVIDERS: Family Medicine
DX: Z51.81 Encounter for therapeutic drug level monitoring (principal); Z79.891 Long term (current) use of opiate analgesic

== ENCOUNTER → 2022-08-05 | Outpatient (CLI) | payer OTHER ==
[2022-08-06 17:10] LABS: U Amphetamine Screen Not Detected; U Barbituate Screen Not Detected; U Benzodiazapine Screen Not Detected; U Buprenorphine Screen Not Detected; U Cannabinoids Screen Not Detected; U Cocaine Screen Not Detected; U Methadone Screen Not Detected; U Methamphetamine Screen Not Detected; U Opiates Screen Not Detected; U Oxycodone Screen Not Detected; U Phencyclidine Screen Not Detected; U Propoxyphene Screen Not Detected
== END | disposition home or self-care (01) ==
LOC: LAB SHORT 11:40
PROVIDERS: Family Medicine
DX: Z51.81 Encounter for therapeutic drug level monitoring (principal); Z79.899 Other long term (current) drug therapy

== ENCOUNTER → 2022-11-07 | Outpatient (CLI) | payer OTHER ==
[2022-11-07 17:05] LABS: U Amphetamine Screen Not Detected; U Barbituate Screen Not Detected; U Benzodiazapine Screen Not Detected; U Buprenorphine Screen Not Detected; U Cannabinoids Screen Not Detected; U Cocaine Screen Not Detected; U Methadone Screen Not Detected; U Methamphetamine Screen Not Detected; U Opiates Screen Not Detected; U Oxycodone Screen Not Detected; U Phencyclidine Screen Not Detected; U Propoxyphene Screen Not Detected
== END | disposition home or self-care (01) ==
LOC: LAB 10:30 → LAB SHORT 10:30
PROVIDERS: Family Medicine
DX: Z51.81 Encounter for therapeutic drug level monitoring (principal); Z79.891 Long term (current) use of opiate analgesic

== ENCOUNTER 2022-11-22 22:15 | Emergency (ER) | payer OTHER ==
[~2022-11-22] VITALS: Ht 165.1 cm; Wt 72.6 kg
[2022-11-22 22:33] LABS: BASOPHILS ABSOLUTE AUTO 0.04 K/mm3 (0.00-0.23); BASOPHILS PERCENT AUTO 0 % (0-2); EOSINOPHILS ABSOLUTE AUTO 0.14 K/mm3 (0.00-0.68); EOSINOPHILS PERCENT AUTO 1 % (0-6); Hematocrit 37.8 % (33.0-51.0); Hemoglobin 12.2 g/dL (11.5-16.0); IMMATURE GRAN ABSOLUTE AUTO 0.06 K/mm3 (0.00-0.10); IMMATURE GRAN PERCENT AUTO 1 % (0-1); LYMPHOCYTES ABSOLUTE AUTO 2.85 K/mm3 (0.84-5.20); LYMPHOCYTES PERCENT AUTO 26 % (21-46); MONOCYTES ABSOLUTE AUTO 1.26 K/mm3 (0.16-1.47); MONOCYTES PERCENT AUTO 12 % (4-13); Mean Corpuscular HGB 28.9 pg (26.0-34.0); Mean Corpuscular HGB Conc 32.3 g/dL (31.5-36.5); Mean Corpuscular Volume 90 fL (80-100); Mean Platelet Volume 9.3 fL (9.1-12.4); NEUTROPHILS PERCENT AUTO 60 % (41-73); Platelet Count 191 K/mm3 (150-400); RDW Coefficient Variation 14.8 % (11.7-14.2); RDW Standard Deviation 48.5 fL (35.1-46.3); Red Blood Cell Count 4.22 M/mm3 (3.80-5.20); White Blood Cell Count 10.95 K/mm3 (4.00-11.30)
[2022-11-22 22:50] LABS: Albumin, Blood 3.6 g/dL (3.4-5.0); Albumin/Globulin Ratio 1.1 (0.8-1.8); Bilirubin, Total 0.2 mg/dL (0.1-1.0); Bun/Creatinine Ratio 14.4 (12.0-20.0); Creatinine, Blood 1.53 mg/dL (0.40-1.00); Globulin, Blood 3.4 g/dL (2.2-4.0); Potassium, Blood 3.5 mmol/L (3.5-5.5)
== END 2022-11-23 02:36 | disposition home or self-care (01) ==
LOC: ER 22:15
PROVIDERS: Emergency Medicine
DX: S01.81XA Laceration without foreign body of other part of head, initial encounter (principal); I10 Essential (primary) hypertension; J44.9 Chronic obstructive pulmonary disease, unspecified; F17.210 Nicotine dependence, cigarettes, uncomplicated; W10.9XXA Fall (on) (from) unspecified stairs and steps, initial encounter; Z88.0 Allergy status to penicillin; Z79.899 Other long term (current) drug therapy
CPT/HCPCS: 12011; 36415; 70450; 71045; 72125; 72170; 80053; 84484; 85025; 93005; 93010; 99285-25; A9270

== ENCOUNTER → 2023-04-16 | Outpatient (CLI) | payer OTHER ==
[2023-04-17 16:17] LABS: U Amphetamine Screen Not Detected; U Barbituate Screen Not Detected; U Benzodiazapine Screen Not Detected; U Methamphetamine Screen Not Detected; U Oxycodone Screen DETECTED
[2023-04-17 16:18] LABS: U Buprenorphine Screen Not Detected; U Cannabinoids Screen Not Detected; U Cocaine Screen Not Detected; U Methadone Screen Not Detected; U Opiates Screen Not Detected; U Phencyclidine Screen Not Detected; U Propoxyphene Screen Not Detected
== END ==
LOC: LAB 15:34 → LAB SHORT 15:34
PROVIDERS: Family Medicine
DX: Z51.81 Encounter for therapeutic drug level monitoring (principal); Z79.899 Other long term (current) drug therapy

== ENCOUNTER → 2023-07-11 | Outpatient (CLI) | payer OTHER ==
[2023-07-11 18:00] LABS: U Amphetamine Screen Not Detected; U Barbituate Screen Not Detected; U Benzodiazapine Screen Not Detected; U Buprenorphine Screen Not Detected; U Cannabinoids Screen Not Detected; U Cocaine Screen Not Detected; U Methadone Screen Not Detected; U Methamphetamine Screen Not Detected; U Opiates Screen Not Detected; U Oxycodone Screen Not Detected; U Phencyclidine Screen Not Detected
== END | disposition home or self-care (01) ==
LOC: LAB SHORT 15:33 → LAB 15:33
PROVIDERS: Family Medicine
DX: Z51.81 Encounter for therapeutic drug level monitoring (principal); Z79.891 Long term (current) use of opiate analgesic

== ENCOUNTER → 2024-06-28 | Outpatient (CLI) | payer OTHER ==
[2024-06-29 17:25] LABS: COTININE, URN, SCREEN Negative ng/mL (Cutoff 100)
== END | disposition home or self-care (01) ==
LOC: LAB SHORT 09:30 → LAB 09:30 → LAB FUT 05-17 13:55
PROVIDERS: Orthopaedic Surgery
DX: Z01.812 Encounter for preprocedural laboratory examination (principal); Z87.891 Personal history of nicotine dependence

== ENCOUNTER → 2024-11-10 | Outpatient (CLI) | payer OTHER ==
[~2024-11-10] MED LIST changes: +AMLO5 PO; +BISA10S PR; +BREZTRI AEROS10.7 GM INH; +BUPROPION XL150 M1 PO; +Chantix1 MG PO; +DOCU100 PO; +DULCOLAX400 MG/5 M PO; +DULERA 100 MCG/13 GM INH; +DULO60 PO; +GUAI600T33 PO; +IPRAT-ALBUT 0.5-3 ML INH; +LIDO700A20 TOP; +METO25ER PO; +PREG150 PO; +TRAZ100 PO; +Ventolin5 MG/1 ML INH
[2024-11-11 17:54] LABS: COTININE, URN, SCREEN Negative ng/mL (Cutoff 100)
== END ==
LOC: LAB SHORT 10:43 → LAB 10:43 → LAB FUT 10-28 10:35
PROVIDERS: Orthopaedic Surgery
DX: Z87.891 Personal history of nicotine dependence (principal)

== ENCOUNTER → 2024-11-25 | Outpatient (CLI) | payer OTHER ==
[2024-11-25 16:01] LABS: BASOPHILS ABSOLUTE AUTO 0.03 K/mm3 (0.00-0.23); BASOPHILS PERCENT AUTO 1 % (0-2); EOSINOPHILS ABSOLUTE AUTO 0.12 K/mm3 (0.00-0.68); EOSINOPHILS PERCENT AUTO 2 % (0-6); Hematocrit 40.4 % (33.0-51.0); IMMATURE GRAN ABSOLUTE AUTO 0.01 K/mm3 (0.00-0.10); IMMATURE GRAN PERCENT AUTO 0 % (0-1); LYMPHOCYTES ABSOLUTE AUTO 1.29 K/mm3 (0.84-5.20); LYMPHOCYTES PERCENT AUTO 23 % (21-46); MONOCYTES ABSOLUTE AUTO 0.62 K/mm3 (0.16-1.47); MONOCYTES PERCENT AUTO 11 % (4-13); Mean Corpuscular HGB 29.7 pg (26.0-34.0); Mean Corpuscular HGB Conc 32.2 g/dL (31.5-36.5); Mean Corpuscular Volume 92 fL (80-100); Mean Platelet Volume 10.9 fL (9.1-12.4); NEUTROPHILS ABSOLUTE AUTO 3.59 K/mm3 (1.96-9.15); NEUTROPHILS PERCENT AUTO 63 % (41-73); Platelet Count 193 K/mm3 (150-400); RDW Coefficient Variation 12.8 % (11.7-14.2); RDW Standard Deviation 42.9 fL (35.1-46.3); Red Blood Cell Count 4.38 M/mm3 (3.80-5.20); White Blood Cell Count 5.66 K/mm3 (4.00-11.30)
[2024-11-25 16:20] LABS: Bun/Creatinine Ratio 30.4 (12.0-20.0); Calcium, Blood 9.4 mg/dL (8.5-10.1); Creatinine, Blood 0.72 mg/dL (0.40-1.00); Potassium, Blood 3.8 mmol/L (3.5-5.5)
== END ==
LOC: LAB 15:46 → LAB SHORT 15:46
PROVIDERS: Orthopaedic Surgery
DX: Z01.818 Encounter for other preprocedural examination (principal); M19.011 Primary osteoarthritis, right shoulder
CPT/HCPCS: 80048; 85025

== ENCOUNTER 2024-12-09 05:43 | Observation (INO) | payer OTHER ==
[2024-12-09] VITALS (13 sets, daily range): BP systolic 123–173; BP diastolic 56–97
[~2024-12-09] VITALS: Ht 154.9 cm; Wt 65.0 kg
[2024-12-09] MEDS ORDERED: Ropivacaine 0.5% HCl/Pf 123.125 MG,EPINEPHrine HCL 0.25 MG,Ketorolac Tromethamine 15 MG... INFIL SCH (06:20)
[2024-12-09] MEDS ORDERED: Chlorhexidine Mouth Care 15 ML UDC MT SCH (06:20)
[2024-12-09] MEDS ORDERED: OxyCODONE HCL 10 MG TABCR PO SCH (06:20)
[2024-12-09] MEDS ORDERED: CeFAZolin Sodium 2,000 MG in NS 100 ML IV SCH ×2 (06:20→16:00)
[2024-12-09] MEDS ORDERED: Acetaminophen 500 MG Tab PO SCH ×2 (06:20→16:00)
[2024-12-09] MEDS ORDERED: Lactated Ringer's 1,000 ML IV SCH ×2 (06:20→10:10)
[2024-12-09] MEDS ORDERED: Tranexamic Acid 100 ML IV SCH (06:20)
[2024-12-09] MEDS ORDERED: VARENICLINE TART1 M2 PO (06:58)
[2024-12-09] MEDS ORDERED: Bupivacaine HCl 0.25% 30 ML Injection ONE (07:04)
[2024-12-09] MEDS ORDERED: Midazolam HCl 1MG / ML 2ML Vial ONE (07:06)
[2024-12-09] MEDS ORDERED: EpiNEPhrine 1 MG/1 ML 1ML Vial ONE (07:06)
[2024-12-09] MEDS ORDERED: propofoL 20 ML IV ONE (07:29)
[2024-12-09] MEDS ORDERED: Rocuronium Bromide 10 MG/ML 5ML Injection IV ONE (07:30)
[2024-12-09] MEDS ORDERED: FentaNYL Citrate 50 MCG/ML 2 ML Injection ONE (07:33)
--- NOTE | 2024-12-09 07:38 | NUR ---
History, Chart, Medications and Allergies reviewed before start of procedure. Pre-Op teaching done. Pt verbalizes understanding. Patient confirms NPO status and agrees with scheduled surgery.
[2024-12-09] MEDS ORDERED: Phenylephrine HCl 100 MCG/ML-NS 10MLSYR (1MG/10ML) ONE ×2 (07:52→09:13)
[2024-12-09] MEDS ORDERED: Dexamethasone Sod Phos 10 MG/ML 1ML VIAL ONE (08:07)
[2024-12-09] MEDS ORDERED: Ondansetron HCl 2 MG / ML 2ML Vial ONE (08:07)
[2024-12-09] MEDS ORDERED: Ketamine HCl 100 MG / ML 5ML Vial ONE (08:10)
[2024-12-09] MEDS ORDERED: HYDROmorphone HCl/Pf 1MG SYR ONE ×3 (08:18→10:04)
[2024-12-09] MEDS ORDERED: FentaNYL Citrate 50 MCG/ML 2 ML Injection IV PRN ×2 (08:35→08:40)
[2024-12-09] MEDS ORDERED: Metoclopramide HCl 5MG / ML 2ML Vial IV PRN ×2 (08:40→09:55)
[2024-12-09] MEDS ORDERED: HYDROmorphone HCl/Pf 1MG SYR IV PRN ×3 (08:40→10:00)
[2024-12-09] MEDS ORDERED: Albuterol 2.5 MG/3 ML VIAL INH PRN (08:50)
[2024-12-09] MEDS ORDERED: Sugammadex Sodium 200 MG/2ML SDV (100 MG/ML) ONE (09:32)
[2024-12-09] MEDS ORDERED: Prochlorperazine Edisylate 10 mg Vial IV PRN (09:50)
[2024-12-09] MEDS ORDERED: OxyCODONE HCL 5 MG TAB PO PRN ×2 (09:50)
[2024-12-09] MEDS ORDERED: Promethazine HCl 25 MG Tab PO PRN (09:50)
[2024-12-09] MEDS ORDERED: Ondansetron HCl 2 MG / ML 2ML Vial IV PRN (09:50)
[2024-12-09] MEDS ORDERED: Ipratropium/Albuterol SulF 2.5-0.5MG/3 ML Amp ONE (09:54)
[2024-12-09] MEDS ORDERED: DiphenhydrAMINE HCL 25 MG Cap PO PRN (09:55)
[2024-12-09] MEDS ORDERED: Bisacodyl 10 MG Supp PR PRN (09:55)
[2024-12-09] MEDS ORDERED: Magnesium Hydroxide Conc 10 ML UDC PO PRN (09:55)
[2024-12-09] MEDS ORDERED: Ketorolac Tromethamine 30mg Vial ONE (10:11)
--- NOTE | 2024-12-09 10:45 | NUR ---
POST OP ARRIVED FROM PACU VIA BED, DROWSY, R ARM IN SLING, C/O PAIN THEN FALLS BACK ASLEEP, WIGGLES FINGERS ON R HAND, AQUACEL DSG ON R SHOULDER C/D/I, LS COARSE, DIMINISHED AT BASES, PT O 2L O2 VIA NC, HRR, ACTIVE BT'S X4, CONT. TO MONITOR FOR ANY CHANGES, MEDICATE FOR PAIN PRN.
--- NOTE | 2024-12-09 11:53 | NUR ---
ASSUMED CARE FROM CHRISTIAN, PATIENT IS RESTING AT THIS TIME. VSS, PULSE OX IN PLACE. 3L NC, SATS ABOVE 90%. CALL LIGHT IN REACH.
[2024-12-09] MEDS ORDERED: Ketorolac Tromethamine 15mg Vial IV SCH (12:00)
--- NOTE | 2024-12-09 17:01 | NUR ---
SUMMARY PATIENT WORKS WITH THERAPY, UP TO CHAIR AND BSC, IV TAKEN OUT FOR INFILTRATION. TOLERATING SIPS OF LIQUIDS. SBA, GB FOR TRANSFERS. ON 3L O2 NC BASELINE FOR COPD. CONT. PULSE OX ON. LUNG SOUNDS ARE COURSE WITH UNPRODUCIVE COUGH. PATIENT ENCOURAGED TO DEEP BREATHE AND COUGH. DENIES NAUSEA. MEDICATED FOR PAIN. CALL LIGHT IN REACH.
[2024-12-09] MEDS ORDERED: Docusate Sodium 100 MG Cap PO SCH (21:00)
[2024-12-10] VITALS: BP 118/62
[2024-12-10] MEDS ORDERED: Ipratropium/Albuterol SulF 2.5-0.5MG/3 ML Amp ONE (00:26)
[2024-12-10] MEDS ORDERED: Ipratropium/Albuterol SulF 2.5-0.5MG/3 ML Amp INH PRN (00:30)
[2024-12-10 03:14] VITALS: BP 117/57
[2024-12-10 03:49] LABS: BASOPHILS ABSOLUTE AUTO 0.02 K/mm3 (0.00-0.23); BASOPHILS PERCENT AUTO 0 % (0-2); EOSINOPHILS ABSOLUTE AUTO 0.01 K/mm3 (0.00-0.68); EOSINOPHILS PERCENT AUTO 0 % (0-6); Hematocrit 32.4 % (33.0-51.0); Hemoglobin 10.2 g/dL (11.5-16.0); IMMATURE GRAN ABSOLUTE AUTO 0.08 K/mm3 (0.00-0.10); IMMATURE GRAN PERCENT AUTO 1 % (0-1); LYMPHOCYTES PERCENT AUTO 7 % (21-46); MONOCYTES ABSOLUTE AUTO 1.15 K/mm3 (0.16-1.47); MONOCYTES PERCENT AUTO 9 % (4-13); Mean Corpuscular HGB 29.3 pg (26.0-34.0); Mean Corpuscular HGB Conc 31.5 g/dL (31.5-36.5); Mean Corpuscular Volume 93 fL (80-100); Mean Platelet Volume 10.6 fL (9.1-12.4); NEUTROPHILS ABSOLUTE AUTO 10.23 K/mm3 (1.96-9.15); NEUTROPHILS PERCENT AUTO 83 % (41-73); Platelet Count 161 K/mm3 (150-400); RDW Coefficient Variation 12.7 % (11.7-14.2); RDW Standard Deviation 43.3 fL (35.1-46.3); Red Blood Cell Count 3.48 M/mm3 (3.80-5.20); White Blood Cell Count 12.29 K/mm3 (4.00-11.30)
[2024-12-10 04:11] LABS: Bun/Creatinine Ratio 28.2 (12.0-20.0); Calcium, Blood 8.8 mg/dL (8.5-10.1); Creatinine, Blood 1.1 mg/dL (0.40-1.00); Magnesium, Blood 1.6 mg/dL (1.6-2.4)
--- NOTE | 2024-12-10 06:27 | NUR ---
Shift Summary Pt able to ambulate to the bathroom with 1 SBA and tripod cane. Around 0000 after a bathroom trip she became wheezy, I called the hospitalist who ordered BD protocol and RT who gave a OT nebulizer treatment, lung sounds improved. Her lung sounds are still fairly coarse and she gets dsypnea with exertion. She has been on RA all night and cont. O2 monitor, SPO2 maintaned > 90%. She is AOx4, medicated per EMAR for pain, cold therapy on R shoulder. She is anxious about possibly returning home and is uncertain if she is ready for that.
[2024-12-10 07:03] VITALS: BP 120/66
[2024-12-10] MEDS ORDERED: Aspirin 81 MG Chew PO SCH (09:00)
--- NOTE | 2024-12-10 11:37 | NUR ---
PT REQUESTING HER HOME MEDICATIONS. DR. MARIE MADE AWARE AND ASKED TO ORDER THEM. REPORT PASSED TO NANCY GERMAN AT [phone]
[2024-12-10 14:20] VITALS: BP 102/65
--- NOTE | 2024-12-10 16:31 | NUR ---
[address] DUFFY HOME MEDS. PT ASKING. [address] MCFARLANE TO RESTART HOME MEDS. PT ASKING. LMTC
--- NOTE | 2024-12-10 17:27 | NUR ---
PT APPROVED FOR TRANSFER TO [facility] HAVE TOMORROW PER VICENTEAUDITOR IN CHARGE, PT'S FRIEND MARIAELENA BRENNAN NOTIFIED PER PT'S REQUEST.
--- NOTE | 2024-12-10 18:19 | NUR ---
PT QUITE PLEASANT AND COOP TODAY. SHE IS CONCERNED NOT RECEIVING HOME MEDS. THEY ARE RECONCILED ON COMPUTER. PRIOR RN ATTEMPTED CONTACT WITH DR MARIE. NO REPLY. THIS RN CALLED DR Caryl MCFARLANE, LINEN FOLDER LEFT MS TO CALL RE HOME MEDS RM 214. NO REPLY AT THIS TIME. WEB CONSULTANT NOTIFIED. PT AMBULATED TO BATHROOM MIN TO SBA. LUNGS CLEAR PT RESP EASY UNLABORED. BED IN LOW POSITION, CALL LITE IN REACH, CALLS APPROP
[2024-12-10 19:09] VITALS: BP 119/62
--- NOTE | 2024-12-11 00:39 | NUR ---
MEDICATIONS PT REQUESTING HOME DOSE LYRICA OF 150MG PO BID & 100MG TRAZADONE @[facility]. STATES THESE MEDS HELP W/CHRONIC PAIN & SLEEP. TRIED REACHING DR MCFARLANE VIA PHONE @[phone] & ANSWERING SERVICE APPROX 23:55 & NO RETURN CALL OR NEW ORDERS GIVEN. PT CURRENTLY RESTING COMFORTABLY W/EYES CLOSED.
--- NOTE | 2024-12-11 02:40 | NUR ---
TRANSFER OF CARE TRANSFERRED CARE TO [facility] @APPROX 0220. PT REPORTS 6-7/10 PAIN TO R SHOULDER, RECIEVED 10MG OXYCODONE & PT ABLE TO REST COMFORTABLY W/EYES CLOSED. REPORTS CONSTANT ITCHING TONIGHT WELL, MEDICATED 2x W/25MG PO BENADRYL. R ARM IN SLING. STRONG PULSE, ABLE TO WIGGLE FINGERS. VSS. HAS BEEN UP MULT TIMES TO USE RESTROOM W/JEAN WALKER & SBY ASSIST. CALL LIGHT IN REACH.
[2024-12-11 03:52] VITALS: BP 146/67
--- NOTE | 2024-12-11 07:00 | NUR ---
SHIFT SUMMARY ASSUMED CARE OF PATIENT FROM KATIE CRUZ. PT SLEEPING WELL. WOKE UP AND CALLED FOR ASSIST TO THE BR. MEDICATED WITH TORADOL SCHEDULED. GOING BACH TO SLEEP. CIRC CHECKS WNL. PT KNOWS TO KEEP SLING IN PLACE. WILL REPORT OFF TO RN TAKING PATIENT THIS AM.
[2024-12-11 08:41] VITALS: BP 127/52
[2024-12-11] MEDS ORDERED: DULoxetine HCL 60 MG Capsule DR PO SCH (09:00)
[2024-12-11] MEDS ORDERED: buPROPion HCL 150 MG TAB.SR.12H PO SCH (09:00)
[2024-12-11] MEDS ORDERED: ASPI81CH PO (12:07)
[2024-12-11] MEDS ORDERED: OXYC5 PO (12:07)
--- NOTE | 2024-12-11 12:48 | NUR ---
PT LEFT AT THIS TIME WITH TRANSPORT TO [facility]. ALL BELONGINGS WITH PATIENT.
--- NOTE | 2024-12-11 12:58 | NUR ---
PATIENT D/C'D TO [facility], VIA WC TRANSPORT. DC PACKET SENT WITH RACK ROOM WORKER ALONG WITH PATIENTS FIDELINAINGWILFRID. REPORT CALLED TO KRISTEL NURSE. PATIENT DENIES ANY FURTHER QUESTIONS OR CONCERNS.
== END 2024-12-11 12:50 ==
LOC: ORSCMMR 05:43 → ORD 07:30 → ORSCMMR 07:30 → SURS 07:31 → ORD 12-16 14:00
PROVIDERS: ADMIT Orthopaedic Surgery
PROC: 0RRJ00Z Replacement of Right Shoulder Joint with Reverse Ball and Socket Synthetic Substitute, Open Approach (ICD-10-PCS; principal; 2024-12-09 07:30)
DX: M19.011 Primary osteoarthritis, right shoulder (principal); I10 Essential (primary) hypertension; E78.5 Hyperlipidemia, unspecified; J44.9 Chronic obstructive pulmonary disease, unspecified; Z88.0 Allergy status to penicillin; Z79.899 Other long term (current) drug therapy
CPT/HCPCS: 36415; 73030; 80048; 83735; 85025; 94640; 94664; 94762; 96365; 96366; 96368; 96372; 96375; 96376; 97110; 97116; 97161; 97165; 97530; 97535; A9270; C1713; C1776; G0378; J0171; J0690; J0735; J1100; J1171; J1885; J2250; J2371; J2405; J2704; J2795; J3010; J7120

== ENCOUNTER 2024-12-14 21:01 | Inpatient (IN) | payer OTHER ==
[~2024-12-14] VITALS: Ht 157.5 cm; Wt 68.9 kg
[~2024-12-14 21:01] MED LIST changes: +ASPI81CH PO; +OXYC5 PO; +VARENICLINE TART1 M2 PO
[2024-12-14 21:33] LABS: BASOPHILS ABSOLUTE AUTO 0.02 K/mm3 (0.00-0.23); BASOPHILS PERCENT AUTO 0 % (0-2); EOSINOPHILS ABSOLUTE AUTO 0.09 K/mm3 (0.00-0.68); EOSINOPHILS PERCENT AUTO 1 % (0-6); Hematocrit 21.9 % (33.0-51.0); Hemoglobin 7.1 g/dL (11.5-16.0); IMMATURE GRAN ABSOLUTE AUTO 0.06 K/mm3 (0.00-0.10); IMMATURE GRAN PERCENT AUTO 1 % (0-1); LYMPHOCYTES ABSOLUTE AUTO 1.02 K/mm3 (0.84-5.20); LYMPHOCYTES PERCENT AUTO 9 % (21-46); MONOCYTES ABSOLUTE AUTO 1.02 K/mm3 (0.16-1.47); MONOCYTES PERCENT AUTO 9 % (4-13); Mean Corpuscular HGB 30.3 pg (26.0-34.0); Mean Corpuscular HGB Conc 32.4 g/dL (31.5-36.5); Mean Corpuscular Volume 94 fL (80-100); Mean Platelet Volume 10.3 fL (9.1-12.4); NEUTROPHILS PERCENT AUTO 81 % (41-73); Platelet Count 221 K/mm3 (150-400); RDW Coefficient Variation 12.5 % (11.7-14.2); RDW Standard Deviation 42.7 fL (35.1-46.3); Red Blood Cell Count 2.34 M/mm3 (3.80-5.20); White Blood Cell Count 11.61 K/mm3 (4.00-11.30)
[2024-12-14 21:58] LABS: Alanine Aminotransfer (ALT/SGP 12 U/L (12-78); Albumin, Blood 2.6 g/dL (3.4-5.0); Albumin/Globulin Ratio 0.8 (0.8-1.8); Alk Phos 54 U/L (50-136); Anion Gap 8 mmol/L (3-11); Aspartate Aminotrans (AST/SGOT 13 U/L (12-37); Bilirubin, Total 0.2 mg/dL (0.1-1.0); Blood Urea Nitrogen 69 mg/dL (8-24); Bun/Creatinine Ratio 78.7 (12.0-20.0); CO2, Blood 26 mmol/L (21-32); Calcium, Blood 9.1 mg/dL (8.5-10.1); Chloride, Blood 106 mmol/L (98-108); Creatinine, Blood 0.88 mg/dL (0.40-1.00); Globulin, Blood 3.2 g/dL (2.2-4.0); Glomerular Filtration Rate 68 (60-); Glucose, Blood 157 mg/dL (70-99); Potassium, Blood 4.7 mmol/L (3.5-5.5); Sodium, Blood 135 mmol/L (136-145); Total Protein, Blood 5.8 g/dL (6.4-8.2)
[2024-12-14 22:00] LABS: Influenza A, PCR NEGATIVE (NEGATIVE); Influenza B, PCR NEGATIVE (NEGATIVE); Resp Syncytial Virus, PCR NEGATIVE (NEGATIVE); SARS-Cov-2 (COVID-19) PCR, MMC NEGATIVE (NEGATIVE)
[2024-12-14] MEDS ORDERED: LevoFLOXacin 750 MG/D5W 150ML 150 ML IV ONE (22:15)
[2024-12-14 22:23] LABS: Acetaminophen, Random <2.0 ug/mL (10.0-30.0); Salicylate 1.9 mg/dL (2.8-20.0)
[2024-12-14 22:35] LABS: Base Excess Venous -0.8 mmol/L; Bicarbonate Venous 23.8 mmol/L (24.0-30.0); PCO2 Venous 39.9 mmHg (38-42); pH Blood Venous 7.39 (7.34-7.37)
[2024-12-14 23:04] LABS: International Normalized Ratio 0.94; Prothrombin Time Results 10.1 Sec (9.7-11.5)
[2024-12-14] MEDS ORDERED: NS 1,000 ML IV SCH (23:35)
[2024-12-15] VITALS (35 sets, daily range): BP systolic 92–142; BP diastolic 55–111
[2024-12-15] MEDS ORDERED: Naloxone HCl 1MG / ML 2ML SYR ONE (00:08)
[2024-12-15] MEDS ORDERED: Ipratropium/Albuterol SulF 2.5-0.5MG/3 ML Amp INH PRN (00:30)
[2024-12-15] MEDS ORDERED: NS 1,000 ML IV SCH (00:30)
[2024-12-15] MEDS ORDERED: Naloxone HCl 1MG / ML 2ML SYR IV ONE (00:30)
[2024-12-15] MEDS ORDERED: Magnesium Hydroxide Conc 10 ML UDC PO PRN (01:20)
[2024-12-15 02:04] LABS: IMMATURE RETIC FRACTION 11.3 % (2.3-16.0); RETIC HGB EQUIVALENT 30.1 pg (28.20-36.60); RETICULOCYTE ABSOLUTE 0.0491 M/mm3 (0.0200-0.1100); RETICULOCYTE COUNT PERCENT 2.02 % (0.50-2.50)
[2024-12-15 02:09] LABS: Percent Saturation 27.9 % (15.0-50.0); Thyroid Stimulating Hormone 1.04 uIU/mL (0.360-4.800)
[2024-12-15] MEDS ORDERED: Acetaminophen650 M1 PO (02:50)
--- NOTE | 2024-12-15 04:34 | NUR ---
0250: DR. WU WAS CALLED AND INFORMED OF PT RIGHT SHOULDER SURGICAL INCISION. INCISION DRESSING WAS CLEAN/DRY/INTACT PRIOR TO REMOVAL FOR PHOTO OF INCISION. INCISION REDRESSED WITH SURGICAL AQUACEL DRESSING (SAME TYPE PREVIOUS.) INCISION WAS CLOSED, NO ERYTHEMA, OR S/S INFECTION. MILD BRUISING WAS PRESENT, NO HEMATOMA OR SWELLING.
--- NOTE | 2024-12-15 04:37 | NUR ---
0202: PT ARRIVED TO ICU BY ER STRETCHER. PT WAS ALERT AND AWAKE, ORIENTED TO PERSON, PLACE, UNSURE OF EXACT DATE, UNSURE OF SITUATION. PT IS CALM AND COOOPERATIVE. PT KNOWS IT IS TOWARD THE END OF NOVEMBER 2024 AND SHE REMEMBERS WHEN SHE HAD HER RECENT SHOULDER SURGERY. PT CAN REPEAT WHY SHOULD WAS TOLD SHE WAS BEING ADMITTED BUT HAS NO MEMORY OF THE EVENT. PT IS ON 3L O2 AND MAINTAINING SATS WELL. SKIN IS INTACT EXCEPT RECENT SHOULDER INCISION AND MILD SCATTERED BRUISES. PT HAS IVX2 TO LEFT ARM AND FLUIDS ARE INFUSING. IV ABX FINISHED INFUSING AT TRANSFER. PT TOLERATING FLUIDS WELL. PT ASKING FOR WATER TO DRINK, PT INFORMED OF NPO STATUS AND IS AGREEABLE AT THIS TIME. ORAL SWABS PROVIDED AND PT ABLE TO USE SWABS INDEPENDENTLY. PT ORIENTED TO USE OF CALL LIGHT. SCDS PLACED. VITAL SIGN MONITORING IN PLACE. PT ABLE TO ANSWER ADMIT QUESTIONS WELL. BED IN LOWEST POSITION, WITH BRAKES ON, EXIT ALARM ON.
--- NOTE | 2024-12-15 04:47 | NUR ---
0230: PUREWICK PLACED D/T PT BEDREST STATUS
[2024-12-15 05:02] LABS: BASOPHILS ABSOLUTE AUTO 0.01 K/mm3 (0.00-0.23); BASOPHILS PERCENT AUTO 0 % (0-2); EOSINOPHILS ABSOLUTE AUTO 0.03 K/mm3 (0.00-0.68); EOSINOPHILS PERCENT AUTO 0 % (0-6); Hematocrit 18.3 % (33.0-51.0); IMMATURE GRAN ABSOLUTE AUTO 0.05 K/mm3 (0.00-0.10); IMMATURE GRAN PERCENT AUTO 1 % (0-1); LYMPHOCYTES ABSOLUTE AUTO 0.81 K/mm3 (0.84-5.20); LYMPHOCYTES PERCENT AUTO 9 % (21-46); MONOCYTES ABSOLUTE AUTO 0.78 K/mm3 (0.16-1.47); MONOCYTES PERCENT AUTO 9 % (4-13); Mean Corpuscular HGB 30.8 pg (26.0-34.0); Mean Corpuscular HGB Conc 32.8 g/dL (31.5-36.5); Mean Corpuscular Volume 94 fL (80-100); Mean Platelet Volume 10.1 fL (9.1-12.4); NEUTROPHILS ABSOLUTE AUTO 7.36 K/mm3 (1.96-9.15); NEUTROPHILS PERCENT AUTO 81 % (41-73); Platelet Count 174 K/mm3 (150-400); RDW Coefficient Variation 12.4 % (11.7-14.2); RDW Standard Deviation 42.1 fL (35.1-46.3); Red Blood Cell Count 1.95 M/mm3 (3.80-5.20); White Blood Cell Count 9.04 K/mm3 (4.00-11.30)
[2024-12-15 05:27] LABS: Albumin, Blood 2.2 g/dL (3.4-5.0); Albumin/Globulin Ratio 0.8 (0.8-1.8); Bilirubin, Total 0.1 mg/dL (0.1-1.0); Bun/Creatinine Ratio 80.2 (12.0-20.0); Calcium, Blood 8.3 mg/dL (8.5-10.1); Creatinine, Blood 0.81 mg/dL (0.40-1.00); Globulin, Blood 2.8 g/dL (2.2-4.0); Potassium, Blood 4.9 mmol/L (3.5-5.5)
[2024-12-15] MEDS ORDERED: NS 500 ML IV SCH (06:25)
--- NOTE | 2024-12-15 07:35 | NUR ---
AM NOTE PT ALERT, ORIENTED TO PERSON, PLACE, AND EVENT, UNSURE OF DATE. PT ON BEDREST. PT DENIES CHEST PAIN/PRESSURE, SOB, NAUSEA, DIZZINESS AND NUMB/TINGLING. PT REPORTING 6/10 PAIN TO RIGHT SHOULDER, REQUESTED ICE PACK, ICE PACK PLACED. SHOULD AND ARM IN AN IMMOBILIZER. TELE SINUS, BP STABLE MAP >65, NO EDEMA NOTED. SPO2 >90% ON 3L 02 VIA NC, (BASELINE). ABD SOFT, NONTENDER, HYPERACTIVE BT NOTED. PT RECEIVING UNIT OF PRBC. PHONE, CALL LIGHT AND TISSUES WITHIN REACH.
[2024-12-15] MEDS ORDERED: Sennosides 8.6 MG Tab PO SCH (09:00)
[2024-12-15] MEDS ORDERED: TraZODone HCl 50 MG Tab PO PRN (10:00)
[2024-12-15 10:31] LABS: Adenovirus Not Detected (NOT DETECT); Bordetella pertussis Not Detected (NOT DETECT); Chlamydophila pneumoniae Not Detected (NOT DETECT); Coronavirus 229E Not Detected (NOT DETECT); Coronavirus HKU1 Not Detected (NOT DETECT); Coronavirus NL63 Not Detected (NOT DETECT); Coronavirus OC43 Not Detected (NOT DETECT); Human Metapneumovirus Not Detected (NOT DETECT); Human Rhinovirus/Enterovirus Not Detected (NOT DETECT); Influenza A/2009-H1 Not Detected (NOT DETECT); Influenza A/H1 Not Detected (NOT DETECT); Influenza A/H3 Not Detected (NOT DETECT); Influenza B Not Detected (NOT DETECT); Mycoplasma pneumoniae Not Detected (NOT DETECT); Parainfluenza Virus 1 Not Detected (NOT DETECT); Parainfluenza Virus 2 Not Detected (NOT DETECT); Parainfluenza Virus 3 Not Detected (NOT DETECT); Parainfluenza Virus 4 Not Detected (NOT DETECT); Respiratory Syncytial Virus Not Detected (NOT DETECT); SARS-Cov-2 (COVID-19), BioFire Not Detected (NOT DETECT)
[2024-12-15 16:46] LABS: Hematocrit 22.8 % (33.0-51.0); Hemoglobin 7.7 g/dL (11.5-16.0)
--- NOTE | 2024-12-15 17:53 | NUR ---
SHIFT SUMMARY PATIENT RECEIVED 2 UNITS OF PRBC, TOLERATED WELL. PT ON 3L O2 VIA NC WHILE SLEEPING, ON RA WHILE AWAKE. CHANGED PUREWICK OUT. PT REFUSING REPOSITIONING THIS AM, AGREEABEL THIS AFTERNOON. ORDERED DIET MINCED/MOIST, PT REQUESTING PUREE FOR EASY OF SWALLOWING; FEEDER. OTHER VSS. CALL LIGHT AND PHONE WITHIN REACH.
--- NOTE | 2024-12-15 18:21 | NUR ---
Pt. is awake and welcomes my visit. Pt. is pleasant. Facilitate a life review and Pt. verbalizes details of her shoulder surgery, rehab, and episode that brought her back to the hospital. Listen with emapthy and a calming presence. Consider matters of scout and belief. Pt. displays evidence of awareness and engagement. Prayed for the Pt. and provided her with the name of a local sabianist as she requested. Pt. verbalzied graittude for the spiritual care visit and welcomed this prescription eyeglass maker to return.
[2024-12-15] MEDS ORDERED: Pregabalin 75 MG Cap PO SCH (21:00)
[2024-12-15] MEDS ORDERED: buPROPion HCL 150 MG TAB.SR.12H PO SCH (21:00)
[2024-12-15] MEDS ORDERED: Ondansetron HCl 2 MG / ML 2ML Vial ONE (22:50)
[2024-12-15] MEDS ORDERED: Ondansetron HCl 2 MG / ML 2ML Vial IV PRN (22:50)
[2024-12-16] VITALS (29 sets, daily range): BP systolic 97–133; BP diastolic 49–100
--- NOTE | 2024-12-16 02:04 | NUR ---
UPDATE ASSUMED CARE OF PT AT 1900, PT AWAKE, ALERT AND ORIENTED X3, CANT RECALL DATE/TIME BUT KNOWS THE YEAR AND PRESIDENT, FOLLOWS COMMANDS, ABLE TO MAKE NEEDS KNOWN, TALKATIVE, SR-ST 90-110s, BP STABLE WITH MAP >65, AFEBRILE, RESP EVEN AND UNLABORED ON RA, RIGHT ARM IN IMMOBILIZER FROM RIGHT SHOULDER SURGERY 12/09/24, DRESSING TO RIGHT SHOULDER CDI, LAST CHANGED THIS AM AT 0230, IMMOBILOZER TAKEN OFF PER PT REQUEST DUE TO CRAMPING AND REPOSITIONED ELEVATED ON 2 PILLOWS, PT ALLOWING TECH TO SPOON FED HER ICE CREAM AT THIS TIME STATING SHE CANT RAISE HER LEFT ARM TO HER MOUTH DUE TO PAIN AND WEAKNESS WHILE SHE IS REMOCVING KLEENEX FROM BOX WITH LEFT HAND AND RAISING HER LEFT ARM TO BLOW HER NOSE WITHOUT ASSIST, ENCOURAGED PT TO USE HER LEFT ARM MORE AND BE MORE INDEPENDENT WITH ADLS SUCH EATING AND DRINKING, PT VOICES UNDERSTANDING BUT CONTINUES TO HAVE TECH FINISH SPOONFEEDING HER REMAINING ICE CREAM. NOTED DEWAYNE LUNGS WITH EXPIRATORY WHEEZES, RT NOTIFIED AND PT GIVEN PRN NEB TX. SCHEDULED MEDS GIVEN PO WITH PRN TRAZADONE PER REQUEST, MILK OF MAG ORDERED PRN AT BEDTIME AND PT REQUESTING TO HAVE IN THE AM SO SHE ISNT AWAKE ALL NIGHT. PT RAISES HER LEFT ARM AND POINTS TO HER MOUTH WHILE OPENING HER MOUTH WHEN I WAS HANDING HER THE MED CUP WITH HS MEDS, MED CUP PLACED IN PT LEFT HAND AND PT WAS ABLE TO TAKE HER MEDS WITHOUT ASSIST, SWALLOWED WITH OUT DIFFICULTY, PT ALSO PICKED UP WATER CUP AT BEDSIDE AND TOOK A DRINK WITHOUT ASSIST. PUREWICK IN PLACE AND PATENT, SCDs ON, SIDE RAILS UP X2 CALL LIGHT IN REACH 2250 PT VOMITING CLEAR BILE AT THIS TIME AND DRY HEAVING. MEDICATED WITH ZOFRAN IVP PER EMAR, GOWN AND SHEETS CHANGED AND PT REPOSITIONED FOR COMFORT.
[2024-12-16 03:58] LABS: BASOPHILS ABSOLUTE AUTO 0.02 K/mm3 (0.00-0.23); BASOPHILS PERCENT AUTO 0 % (0-2); EOSINOPHILS ABSOLUTE AUTO 0.07 K/mm3 (0.00-0.68); EOSINOPHILS PERCENT AUTO 1 % (0-6); Hematocrit 18.3 % (33.0-51.0); Hemoglobin 6.1 g/dL (11.5-16.0); IMMATURE GRAN ABSOLUTE AUTO 0.06 K/mm3 (0.00-0.10); IMMATURE GRAN PERCENT AUTO 1 % (0-1); LYMPHOCYTES ABSOLUTE AUTO 1.38 K/mm3 (0.84-5.20); LYMPHOCYTES PERCENT AUTO 15 % (21-46); MONOCYTES ABSOLUTE AUTO 0.93 K/mm3 (0.16-1.47); MONOCYTES PERCENT AUTO 10 % (4-13); Mean Corpuscular HGB 30.3 pg (26.0-34.0); Mean Corpuscular HGB Conc 33.3 g/dL (31.5-36.5); Mean Corpuscular Volume 91 fL (80-100); Mean Platelet Volume 10.5 fL (9.1-12.4); NEUTROPHILS ABSOLUTE AUTO 6.94 K/mm3 (1.96-9.15); NEUTROPHILS PERCENT AUTO 74 % (41-73); Platelet Count 159 K/mm3 (150-400); RDW Coefficient Variation 13.9 % (11.7-14.2); RDW Standard Deviation 46.5 fL (35.1-46.3); Red Blood Cell Count 2.01 M/mm3 (3.80-5.20)
[2024-12-16 04:19] LABS: Albumin, Blood 1.8 g/dL (3.4-5.0); Albumin/Globulin Ratio 0.9 (0.8-1.8); Bilirubin, Total 0.3 mg/dL (0.1-1.0); Bun/Creatinine Ratio 78.8 (12.0-20.0); Calcium, Blood 7.2 mg/dL (8.5-10.1); Creatinine, Blood 0.66 mg/dL (0.40-1.00); Globulin, Blood 2.1 g/dL (2.2-4.0); Magnesium, Blood 1.8 mg/dL (1.6-2.4); Potassium, Blood 4.1 mmol/L (3.5-5.5); Total Protein, Blood 3.9 g/dL (6.4-8.2)
[2024-12-16] MEDS ORDERED: Mag Sulfate 1 GM/D5% 100ML 100 ML IV ONE (05:40)
--- NOTE | 2024-12-16 06:19 | NUR ---
SHIFT SUMMARY NO ACUTE CHANGES THIS SHIFT, VSS, AFEBRILE, VOMITED X1, ZOFRAN IVP X1 PER EMAR EFFECTIVE, RESTING WITH EYES CLOSED AND RESP EVEN AND UNLABORED ON RA MOST OF SHIFT, RIGHT ARM ELEVATED ON PILLOWS WITH IMMOBILEZER OFF PER PT REQUEST, HGB 6.1, 1 UNIT PRBC INFUSING AT THIS TIME, MAG 1.8 WITH MAG 1 GM IVPB INFUSING AT THIS TIME,DENIES NEEDS OR C/O SIDE RAILS UP X2 CALL LIGHT IN REACH
[2024-12-16] MEDS ORDERED: Peg 400/Hypromellose/Glycerin 15 DROP/ML BTL BOTHEYES PRN (08:15)
--- NOTE | 2024-12-16 08:18 | NUR ---
A short visit in the morning to re-establish rapport. Pt. is eating breakfast. Assist Pt. with some minor needs, but step aside to allow Pt. to eat breakfast. Pt. verbalized gratitude for the check and welcomed this trimmer meat to return later in the day.
[2024-12-16] MEDS ORDERED: Dextran/Hypromellose/Glycerin 15 DROP/ML BTL BOTHEYES PRN (08:20)
[2024-12-16] MEDS ORDERED: OxyCODONE HCL 5 MG TAB PO PRN (08:20)
[2024-12-16] MEDS ORDERED: Aspirin 81 MG Chew PO SCH (09:00)
[2024-12-16] MEDS ORDERED: CefTRIAXone Sodium 2,000 MG in NS 100 ML IV SCH (09:00)
[2024-12-16] MEDS ORDERED: Calcium Carbonate 1,250 MG TABLET PO SCH (09:00)
[2024-12-16] MEDS ORDERED: AmLODIPine Besylate 5 MG Tab PO SCH (09:00)
--- NOTE | 2024-12-16 10:59 | NUR ---
THIS RN AND ICE SKATER MICKEY ASSUMED CARE OF THE PT AT ABOUT 0700 THIS MORNING. THE PT IS A&OX4, MAKES HER NEEDS KNOWN, AND FOLLOWS CONVERSATION APPRORPAITELTY. BLOOD WAS TRANSUFING AT THE START OF OUR SHIFT, AND WHILE IN THE ROOM, DR. CAPUTO ORDERED TWO ADDITIONAL UNITS OF BLOOD. THIS RN CALLED DR. CAPUTO TO CLARIFY IF SHE WANTS A TOTAL OF THREE UNITS GIVEN OR A TOTAL OF TWO. DR. CAPUTO WANTED A TOTAL OF THREE UNITS TODAY. ON HAS FINISHED INFUSING AND THE SECOND IS ALMOST DONE. PLAN TO RECHECK H&H ONE HOUR AFTER ALL UNITS ARE GIVEN. NO SIGNS OF BLEEDING NOTED. THE PT HAS HAD MULTIPLE BROWN SOFT BOWEL MOVMENTS THIS SHIFT THUS FAR. HER RIGHT ARM CONTINUES TO HURT 6-7/10 PAIN, SO DR. CAPUTO ORDERED PRN PAIN MEDICATIONS. STAT RT ARM XR ORDERED. RESULTS STILL PENDING. ON MONITOR THE PT HAS BEEN SR/ST 100'S-110'S, SP02 >93% ON RA. THE PT DENIES ANY SOB OR CHEST PAIN. RIGHT ARM IN ARM DEMOBILIZER. AQUACEL C/D/I. NOTED YELLOW BRUISING ON PT'S RIGHT ARM. NO SWELLING NOTED. SEE NOTES FOR UPDATES .
--- NOTE | 2024-12-16 13:13 | NUR ---
THIS RN CALLED DR. CAPUTO TO LET HER KNOW ABOUT RT SHOULDER XRAY FINDINGS. WHILE ON THE PHONE AN ESR, CRP, LDH, AND STOOL OCCULT WERE ORDERED. DR. CAPUTO STATE'D THAT THE PT IS STILL STABLE ENOUGH TO MOVE TO THE PROGRESSIVE CARE UNIT. PLANS TO MOVE THE PT TO PCU 08. SEE NOTES FOR ANY UPDATES.
--- NOTE | 2024-12-16 14:20 | NUR ---
PT TRANSFERED TO PCU 08. REPORT GIVEN TO CORRY CRUZ AND STUDENT NURSE BRANDEN.
--- NOTE | 2024-12-16 14:46 | NUR ---
"Spiritual Care | Pt. request Pt. has been moved to [facility], andrequested that this tight barrel inspector visit her. Pt.is pleasant and verbalized encouragement about her recovery. Pt. verbalized some of the physical challenges that she and her spouse face, but also that she wanted to visit yazidism. Prayed with the Pt. Pt. verbalized gratitude fo rthe spiritual care visit."
[2024-12-16 15:25] LABS: Hematocrit 28.1 % (33.0-51.0); Hemoglobin 9.7 g/dL (11.5-16.0)
--- NOTE | 2024-12-16 18:18 | NUR ---
Pt c/o throat burning while eating and drinking. STates that the pain has been ongoing problem since her surgery one week ago. Requested chloroseptic spray or other relief from Dr. Johnson; message left on voice mail.
[2024-12-17 03:38] VITALS: BP 123/52
[2024-12-17 04:22] LABS: Hematocrit 29.4 % (33.0-51.0); Hemoglobin 9.9 g/dL (11.5-16.0); Mean Corpuscular HGB Conc 33.7 g/dL (31.5-36.5); Mean Corpuscular Volume 89 fL (80-100); Mean Platelet Volume 9.9 fL (9.1-12.4); Platelet Count 157 K/mm3 (150-400); RDW Coefficient Variation 14.8 % (11.7-14.2); RDW Standard Deviation 48.1 fL (35.1-46.3); White Blood Cell Count 10.39 K/mm3 (4.00-11.30)
[2024-12-17 04:42] LABS: Bun/Creatinine Ratio 56.5 (12.0-20.0); Calcium, Blood 8.5 mg/dL (8.5-10.1); Creatinine, Blood 0.67 mg/dL (0.40-1.00); Magnesium, Blood 2.4 mg/dL (1.6-2.4); Phosphorus, Blood 3.3 mg/dL (2.5-4.9); Potassium, Blood 4.1 mmol/L (3.5-5.5)
--- NOTE | 2024-12-17 04:43 | NUR ---
SHIFT SUMMARY NO ACUTE CHANGES THIS SHIFT. VSS. AXO4. COOPERATIVE, BEING REPOSITIONED WITH STAFF. AQUACEL REMAINS TO R SHOULDER. UNABLE TO COLLECT OCCULT STOOL PT HAS NOT HAD BM THIS SHIFT. HGB STABLE WITH AM LABS. WAS ON RA FOR MAJORITY OF SHIFT AND THEN PLACED ON 2LNC WHEN SLEEPING. PT NPO AFTER MIDNIGHT FOR SCOPE TODAY. VOIDING WELL. BED ALARM ON. CALL LIGHT WITHIN REACH.
[2024-12-17 08:08] VITALS: BP 117/47
[2024-12-17] MEDS ORDERED: Lactated Ringer's 1,000 ML IV SCH (08:30)
[2024-12-17] MEDS ORDERED: Polyethylene Glycol 3350 17 gm PO PRN (09:15)
[2024-12-17 11:39] VITALS: BP 116/47
--- NOTE | 2024-12-17 12:22 | NUR ---
UPDATE: PT TO DAY SURG FOR EGD. VSS.
[2024-12-17 12:33] VITALS: BP 123/99
--- NOTE | 2024-12-17 12:35 | NUR ---
History, Chart, Medications and Allergies reviewed before start of procedure. Pre-Op teaching done. Pt verbalizes understanding. Patient confirms NPO status and agrees with scheduled surgery. PT LEFT ALL BELONGINGS IN PCU FLOOR ROOM.
[2024-12-17 13:55] LABS: Hematocrit 27.8 % (33.0-51.0); Hemoglobin 9.5 g/dL (11.5-16.0)
[2024-12-17] MEDS ORDERED: propofoL 20 ML IV ONE (14:18)
--- NOTE | 2024-12-17 14:25 | NUR ---
12/17/24 1424 Joseline Manning MAC WITH NEDA SLATER CRNA. SEE ANESTHESIA RECORDS.
[2024-12-17 14:59] VITALS: BP 143/79
[2024-12-17] MEDS ORDERED: Pantoprazole Sodium 40 MG Injection IV SCH (16:30)
[2024-12-17 19:56] VITALS: BP 127/48
[2024-12-17] MEDS ORDERED: Lidocaine 4% 1 Patch TOP SCH (21:11)
[2024-12-18 04:04] LABS: Stool Occult Blood Guaiac 1 Pos (Neg)
[2024-12-18 06:13] LABS: Hematocrit 25.4 % (33.0-51.0); Hemoglobin 8.2 g/dL (11.5-16.0); Mean Corpuscular HGB 29.6 pg (26.0-34.0); Mean Corpuscular HGB Conc 32.3 g/dL (31.5-36.5); Mean Corpuscular Volume 92 fL (80-100); Mean Platelet Volume 10.1 fL (9.1-12.4); Platelet Count 178 K/mm3 (150-400); RDW Coefficient Variation 14.5 % (11.7-14.2); RDW Standard Deviation 48.3 fL (35.1-46.3); Red Blood Cell Count 2.77 M/mm3 (3.80-5.20); White Blood Cell Count 11.29 K/mm3 (4.00-11.30)
[2024-12-18 06:41] LABS: Albumin, Blood 2.3 g/dL (3.4-5.0); Albumin/Globulin Ratio 0.9 (0.8-1.8); Bilirubin, Total 0.3 mg/dL (0.1-1.0); Bun/Creatinine Ratio 44.1 (12.0-20.0); Calcium, Blood 8.4 mg/dL (8.5-10.1); Creatinine, Blood 0.59 mg/dL (0.40-1.00); Globulin, Blood 2.7 g/dL (2.2-4.0); Magnesium, Blood 2.1 mg/dL (1.6-2.4); Phosphorus, Blood 3.2 mg/dL (2.5-4.9); Potassium, Blood 4.8 mmol/L (3.5-5.5)
[2024-12-18 08:17] VITALS: BP 118/62
[2024-12-18] MEDS ORDERED: Cyanocobalamin 1000 MCG/ML 1ML Vial IM SCH (09:00)
[2024-12-18 12:20] VITALS: BP 114/59
[2024-12-18 14:20] LABS: Source, Urine Straight Cath
[2024-12-18 14:24] LABS: Hematocrit 24.3 % (33.0-51.0); Hemoglobin 8.2 g/dL (11.5-16.0); Mean Corpuscular HGB 31.2 pg (26.0-34.0); Mean Corpuscular HGB Conc 33.7 g/dL (31.5-36.5); Mean Corpuscular Volume 92 fL (80-100); Mean Platelet Volume 10.1 fL (9.1-12.4); Platelet Count 180 K/mm3 (150-400); RDW Coefficient Variation 14.5 % (11.7-14.2); RDW Standard Deviation 47.9 fL (35.1-46.3); Red Blood Cell Count 2.63 M/mm3 (3.80-5.20); White Blood Cell Count 9.13 K/mm3 (4.00-11.30)
[2024-12-18 14:45] LABS: Appearance, Urine Clear (Clear); Bilirubin, Urine Neg (Neg); Blood, Urine 5+ (Neg); Glucose Qualitative, Urine Neg (Neg); Ketones, Urine Neg (Neg); Leukocyte Esterase, Urine Neg (Neg); Nitrite, Urine Neg (Neg); Protein, Urine Neg (Neg); Urobilinogen, Urine NORM (Normal)
[2024-12-18 14:56] LABS: Color, Urine Pale Yellow (P-Yellow)
[2024-12-18 15:01] LABS: White Blood Cells, Urine 0-2 /hpf (0-5)
[2024-12-18 15:02] LABS: Amorphous Light (0-Heavy); Bacteria Few /hpf; Mucus Light (0-Heavy); Red Blood Cells, Urine 0-2 /hpf (0-2); Squamous Epithelial Cells Mod /hpf (Few); Transitional Epithelial Cells Rare /hpf (0-Rare)
[2024-12-18 15:57] VITALS: BP 114/63
[2024-12-18] MEDS ORDERED: Pantoprazole Sodium 40 MG Tab PO SCH (16:30)
--- NOTE | 2024-12-18 18:00 | NUR ---
SHIFT SUMMARY: A/OX4, PLEASANT AND COOPERATIVE WITH CARE, HX OF SYNCOPE, 1-2 P SBA, ABLE TO USE CALL LIGHT APPROPRIATELY, HR RANGE 100-110'S, ST/NSR, NO EDEMA NOTED, LIZETTE IV REMOVED, LFA IV REMAINS, HBG REMAINED STABLE FROM 0500 AT 8.2 TO 1332 AT 8.2 PER LAB REPORT, SATS >92% ON RA WHILE AWAKE, 2-3L VIA NC WHILE SLEEPING, PRN OXY ON EMAR, HX OF NEEDING NARCAN, 2 ULCERS IN DISTAL ANTRUM PER MD EDGAR BACA D/C'D ASPIRIN ORDER PER EMAR, ADVANCED FROM LIQUID DIET TO SOFT, CONTINUE TO ADVANCE DIET TOLERATED PER MD ORDER, SITS UP IN RECLINER FOR MEALS, POSITIVE FOR OCCULT STOOL, URINE SAMPLE COLLECTED, SEE RESULTS, R SHOULDER REPLACEMENT WITH AQUACEL INTACT, 2 LBS WEIGHT LIMIT ON R SIDE, APEX OF LEFT GLUTEAL FOLD REDDEND, PT DENIES PAIN OR BURNING AT THE SITE, BLANCHES, WORKING WITH PT/OT SERVICES, PLAN TO DC TO [facility], PT DENIES NEEDS AT THIS TIME, CALL LIGHT WITHIN REACH.
[2024-12-18 20:40] VITALS: BP 135/56
[2024-12-18 23:33] VITALS: BP 133/58
[2024-12-19 03:07] VITALS: BP 97/66
--- NOTE | 2024-12-19 04:32 | NUR ---
SHIFT SUMMARY NO ACUTE CHANGES OVERNIGHT. NO C/O PAIN THROUGHOUT NIGHT. USING BSC WITH 1-2A AND GAITBELT. PT CONTINUES TO BE WEAK ON FEET AND USING FWW. AWAITING NEW LAB RESULTS TO TREND. NO FURTHER QUESTIONS OR CONCERNS AT THIS TIME. WILL CONTINUE WITH PLAN OF CARE.
[2024-12-19 05:18] LABS: BASOPHILS ABSOLUTE AUTO 0.02 K/mm3 (0.00-0.23); BASOPHILS PERCENT AUTO 0 % (0-2); EOSINOPHILS ABSOLUTE AUTO 0.09 K/mm3 (0.00-0.68); EOSINOPHILS PERCENT AUTO 1 % (0-6); Hematocrit 26.6 % (33.0-51.0); Hemoglobin 8.7 g/dL (11.5-16.0); IMMATURE GRAN ABSOLUTE AUTO 0.04 K/mm3 (0.00-0.10); IMMATURE GRAN PERCENT AUTO 1 % (0-1); LYMPHOCYTES ABSOLUTE AUTO 1.24 K/mm3 (0.84-5.20); LYMPHOCYTES PERCENT AUTO 18 % (21-46); MONOCYTES PERCENT AUTO 10 % (4-13); Mean Corpuscular HGB 30.4 pg (26.0-34.0); Mean Corpuscular HGB Conc 32.7 g/dL (31.5-36.5); Mean Corpuscular Volume 93 fL (80-100); Mean Platelet Volume 9.5 fL (9.1-12.4); NEUTROPHILS ABSOLUTE AUTO 4.66 K/mm3 (1.96-9.15); NEUTROPHILS PERCENT AUTO 69 % (41-73); Platelet Count 181 K/mm3 (150-400); RDW Coefficient Variation 13.9 % (11.7-14.2); RDW Standard Deviation 46.9 fL (35.1-46.3); Red Blood Cell Count 2.86 M/mm3 (3.80-5.20); White Blood Cell Count 6.75 K/mm3 (4.00-11.30)
[2024-12-19 05:38] LABS: Bun/Creatinine Ratio 55.3 (12.0-20.0); Calcium, Blood 8.9 mg/dL (8.5-10.1); Creatinine, Blood 0.62 mg/dL (0.40-1.00); Potassium, Blood 4.3 mmol/L (3.5-5.5)
[2024-12-19 09:15] VITALS: BP 123/58
[2024-12-19 12:30] VITALS: BP 121/56
[2024-12-19 15:20] LABS: LACTATE DEHYDROGENASE - 1 23 % (14-27); LACTATE DEHYDROGENASE - 2 35 % (29-42); LACTATE DEHYDROGENASE - 3 21 % (18-30); LACTATE DEHYDROGENASE - 4 8 % (8-15); LACTATE DEHYDROGENASE - 5 13 % (6-23); LACTATE DEHYDROGENASE,TOTAL 148 U/L (105-230)
[2024-12-19 16:19] VITALS: BP 137/78
--- NOTE | 2024-12-19 18:58 | NUR ---
SHIFT SUMMARY PT TRANSFERED TO MED FLOOR. ALERT AND ORIENTED X4, CALLS APPROPRIATLY, REPORT GIVEN TO MARITZA MANSFIELD. TREATED PAIN PER EMAR. PLAN FOR D/C TO [facility] PENDING AUTH. 1 PERSON ASSIST. URINE URGENCY.
[2024-12-19 20:25] VITALS: BP 116/85
[2024-12-20 04:22] VITALS: BP 127/69
[2024-12-20 04:50] LABS: BASOPHILS ABSOLUTE AUTO 0.02 K/mm3 (0.00-0.23); BASOPHILS PERCENT AUTO 0 % (0-2); EOSINOPHILS ABSOLUTE AUTO 0.12 K/mm3 (0.00-0.68); EOSINOPHILS PERCENT AUTO 2 % (0-6); Hematocrit 25.5 % (33.0-51.0); Hemoglobin 8.2 g/dL (11.5-16.0); IMMATURE GRAN ABSOLUTE AUTO 0.04 K/mm3 (0.00-0.10); IMMATURE GRAN PERCENT AUTO 1 % (0-1); LYMPHOCYTES ABSOLUTE AUTO 1.35 K/mm3 (0.84-5.20); LYMPHOCYTES PERCENT AUTO 22 % (21-46); MONOCYTES ABSOLUTE AUTO 0.65 K/mm3 (0.16-1.47); MONOCYTES PERCENT AUTO 11 % (4-13); Mean Corpuscular HGB Conc 32.2 g/dL (31.5-36.5); Mean Corpuscular Volume 93 fL (80-100); Mean Platelet Volume 9.3 fL (9.1-12.4); NEUTROPHILS PERCENT AUTO 65 % (41-73); Platelet Count 197 K/mm3 (150-400); RDW Standard Deviation 46.4 fL (35.1-46.3); Red Blood Cell Count 2.73 M/mm3 (3.80-5.20); White Blood Cell Count 6.18 K/mm3 (4.00-11.30)
[2024-12-20 05:07] LABS: Bun/Creatinine Ratio 48.1 (12.0-20.0); Calcium, Blood 8.5 mg/dL (8.5-10.1); Creatinine, Blood 0.54 mg/dL (0.40-1.00); Potassium, Blood 4.3 mmol/L (3.5-5.5)
--- NOTE | 2024-12-20 05:48 | NUR ---
PT A&OX4, PT HAS BEEN REPOSITIONING HERSELF A MINIMIUM OF EVERY 2 HOURS AND OFTEN ASKS FOR ASSISTANCE WITH ADJUSTING PILLOWS FOR COMFORT. PURWIK URINEARY DEVICE IN PLACE AND DRAINING CLEAR YELLOW URINE. PT HAS C/O PAIN IN BACK AND SHOULDER DAVIS MEDICATION GIVEN RX.
[2024-12-20 07:27] VITALS: BP 128/67
--- NOTE | 2024-12-20 14:11 | NUR ---
Pt. is awake and sitting in a chair when she welcomes my visit. This senior drafter has visited this Pt. on several ocassions, so rapport is quickly re-established. Facilitated an update. Pt. verbalized that she has received great care during this visit. Considered many things including matters of scout and family. Pt. is a little unsettled about what it will take in orser for her to go home, Seek to encourage the Pt. to trust in God as the healing process continues. Prayed with the Pt. Pt. verbalized gratitude for the spiritual care visit.
[2024-12-20 15:46] VITALS: BP 107/64
--- NOTE | 2024-12-20 17:51 | NUR ---
SHIFT SUMMARY PT A&OX4. PT ADMITTED DUE TO AMB SYNCOPE. PT REPORTS NO DIZZINESS WHEN AMBULATING, CHEST PAIN, SOB. PT REPORTS PAIN ON BACK AND SHOULDER DUE TO RECENT SURGERY. PAIN MANAGED PER EMAR. PT HAVING BLACK TARRY STOOL, NOTIFIED DR. HERNÁNDEZ. PT INC. OF STOOL AND URINE. WICKING DEVICE IN PLACE FOR URINE. OT/PT WORKED WITH PT. PT REPORTED PT DOESN'T HAVE ALL STRAPS FOR ARM BRACE POST OP. CALLED FELIPA, FELIPA REPORTED WILL BRING BY MISSING STRAP SOMETIME TODAY OR TOMORROW. PHYSICAL THERAPY REPORTED PT IS A SBA W FWW. PT UP IN CHAIR TODAY. PT ON ROOM AIR, PT REPORTS WEARING 3L OF O2 VIA N/C AT NIGHT. SPO2 IS 93%. VSS. MCNAIR CAME TO VISIT WITH PT. PT CURRENT IN BED, BED IN LOWEST POSITION, CALL LIGHT IN REACH.
[2024-12-20 19:21] VITALS: BP 114/54
[2024-12-21 05:02] LABS: Hematocrit 26.2 % (33.0-51.0); Hemoglobin 8.3 g/dL (11.5-16.0)
[2024-12-21 05:19] VITALS: BP 120/67
--- NOTE | 2024-12-21 05:37 | NUR ---
PT HAS C/O GENERALIZED PAIN, PAIN MEDICATIONS GIVEN RX. PT SLEPT T/O MOST OF THIS SHIFT. PT ADJUSTED IN BED ATLEAST EVERY 2 HOURS T/O THIS SHIFT.
[2024-12-21 07:27] VITALS: BP 118/54
[2024-12-21 15:27] VITALS: BP 124/52
--- NOTE | 2024-12-21 17:05 | NUR ---
SHIFT SUMMARY PATIENT A/OX4, ABLE TO MAKE NEEDS KNOWN. PLEASANT ADN COOPERATIVE WITH CARE. PATIENT COMPLAINING OF GENERALIZED PAIN, PATIENT STATES "EVERYWHERE" MEDICATED WITH OXYCODONE TWICE THIS SHIFT PER EMAR. PATIENT STATED CONCERNS THIS MORNING REGAURDING HER SPOUSE AT HOME WHO HAS ALZHIEMERS SHE IS HIS PRIMARY CAREGIVER. PATIENT HAS CONCERNS WITH CURRENT FRIEND WHO HAS BEEN HELPING HER HSBAND IN HER PLACE WHILE BEING HOSPITALIZED. PATIENT PROVIDED WITH THERAPEUTIC LISTENING AND G[facility]EN [facility] . PATIENT PARTICIPATED IN PHYSICAL THERAPY AND OCCUPATIONAL THERAPY. AQUACEL DRESSING CHANGED TO RIGHT SHOULDER INCISION PER DR. HERNÁNDEZ. NO OTHER CONCERNS AT THIS TIME, WILL CONTINUE TO MONITOR.
[2024-12-21 19:46] VITALS: BP 106/78
[2024-12-22 05:34] VITALS: BP 108/51
--- NOTE | 2024-12-22 05:47 | NUR ---
SHIFT SUMMARY NO ACUTE CHANGES TO REPORT OVERNIGHT. PT HAS RESTED T/O THE NIGHT. PT HAD A SHOWER AT THE BEGINNING OF THE SHIFT. PAIN MANAGED PER EMAR. PT MAKES NEEDS KNOWN, CALL LIGHT WITHIN REACH. PENDING DISCHAGE BACK TO [facility]. PLAN OF CARE REMAINS UNCHANGED.
[2024-12-22 08:41] VITALS: BP 121/64
[2024-12-22] MEDS ORDERED: Cyanocobalamin 500 MCG Tab PO SCH (09:00)
--- NOTE | 2024-12-22 12:08 | NUR ---
CALLED DR HERNÁNDEZ- SPOKE TO DR HERNÁNDEZ, THE PT HAS LOST IV ACCESS AND SHE DOES NOT HAVE ANY IV MEDICATIONS, TALKED ABOUT NEED FOR REPLACING THE IV OR LEAVING IT OUT. RECIEVED AN ORDER FOR NO IV ACCESS. ALSO SPOKE ABOUT DAILY IM VITAMIN B-12, RECIEVED A VERBAL ORDER TO CHANGE TO PO B-12.
--- NOTE | 2024-12-22 15:55 | NUR ---
DISCHARGE NOTE- PT WAS DC'D BACK TO [facility]. CALLED AND SPOKE TO FELIPA RN, THEY ARE AWARE OF HER EMINENT RETURN. PT HAS HER SHOULDER IMMOBILIZER WITH HER, HOWEVER PT DOES NOT HAVE ALL THE PARTS. PT PLACED IN A HOSPITAL IMOBILIZER PRIOR TO DISCHARGE. FELIPA CRUZ AWARE. PT WAS TAKEN VIA WC TRANSPORT, NO S&S OF DISTRES NOTED AT THE TIME OF DISCHARGE.
== END 2024-12-22 12:55 | DRG 377 ==
LOC: ER 21:01 → ERHOLD 12-15 00:19 → PCU 12-15 00:19 → ICUE 12-15 00:19 → PCU 12-16 14:09 → MEDS 12-19 18:33
PROVIDERS: Emergency Medicine; Family Medicine; Hospitalist; Student in an Organized Health Care Education/Training Program; Surgery; ADMIT Internal Medicine
PROC: 30233N1 Transfusion of Nonautologous Red Blood Cells into Peripheral Vein, Percutaneous Approach (ICD-10-PCS; 2024-12-16)
PROC: 0DB78ZX Excision of Stomach, Pylorus, Via Natural or Artificial Opening Endoscopic, Diagnostic (ICD-10-PCS; principal; 2024-12-17 13:00)
DX: K25.4 Chronic or unspecified gastric ulcer with hemorrhage (principal); G92.8 Other toxic encephalopathy; D62 Acute posthemorrhagic anemia; I10 Essential (primary) hypertension; M19.90 Unspecified osteoarthritis, unspecified site; J44.89 Other specified chronic obstructive pulmonary disease; E86.0 Dehydration; I95.9 Hypotension, unspecified; K29.80 Duodenitis without bleeding; Z96.643 Presence of artificial hip joint, bilateral; Z96.611 Presence of right artificial shoulder joint; Z88.0 Allergy status to penicillin; Z79.82 Long term (current) use of aspirin; Z79.891 Long term (current) use of opiate analgesic
CPT/HCPCS: 0202U; 0241U; 36415; 36430; 70450; 71260; 73030; 74177; 80048; 80053; 81001; 82140; 82272; 82607; 82728; 82746; 82803; 83540; 83550; 83605; 83615; 83625; 83735; 84100; 84145; 84443; 84484; 85014; 85018; 85025; 85027; 85045; 85610; 85651; 85730; 86140; 86850; 86900; 86901; 86923; 87040; 88305; 88342; 93005; 93010; 94640; 94664; 94760; 94762; 96374; 97110; 97161; 97165; 97530; 97535; 99285-25; A9270; G0480; J0696; J1956; J2310; J2405; J2470; J2704; J3420; J3475; J7030; J7040; J7120; P9016; Q9967

== ENCOUNTER 2025-07-07 08:57 | Inpatient (IN) | payer OTHER ==
[2025-06-15 14:15] VITALS: BP 106/51
[2025-07-07] VITALS (16 sets, daily range): BP systolic 120–153; BP diastolic 55–139
[~2025-07-07] VITALS: Ht 157.5 cm; Wt 64.9 kg
[~2025-07-07 08:57] MED LIST changes: +ALBU2.5V5 INH; +ASPIR 8181 M1 PO; +Acetaminophen650 M1 PO; +BREZTRI AEROS10.7 GM; +CEFD300 PO; +CELE200 PO; +CeFAZolin Sodium 2,000 MG in NS 100 ML IV SCH; +Chlorhexidine Mouth Care 15 ML UDC MT SCH; +IBUP600 PO; +PRAV20 PO; -PREG150 PO; +PREG25 PO; +PREG75 PO; +Tranexamic Acid 100 ML IV SCH; +VISBIOME 112.51 EACH PO
[2025-07-07] MEDS ORDERED: Ropivacaine 0.5% HCl/Pf 123.125 MG,EPINEPHrine HCL 0.25 MG,Ketorolac Tromethamine 15 MG... INFIL SCH (10:30)
[2025-07-07] MEDS ORDERED: Magnesium Sulfate 500 MG / ML 2ML Vial ONE (10:32)
[2025-07-07] MEDS ORDERED: FentaNYL Citrate 50 MCG/ML 2 ML Injection ONE ×2 (10:37→12:54)
[2025-07-07] MEDS ORDERED: Midazolam HCl 1MG / ML 2ML Vial ONE (10:37)
[2025-07-07] MEDS ORDERED: Rocuronium Bromide 10 MG/ML 5ML Injection IV ONE (10:38)
--- NOTE | 2025-07-07 10:42 | NUR ---
History, Chart, Medications and Allergies reviewed before start of procedure. Patient confirms NPO status and agrees with scheduled surgery. Pre-Op teaching done. Pt verbalizes understanding. Patient reports completing Chlorhexadine shower X2 prior to admission to hospital. Lung sounds dim t/o, exp wheese, chronic for pt. Anes aware. No block done today r/t prior post surgical complications. Cocktail ordered.
[2025-07-07] MEDS ORDERED: Phenylephrine HCl 100 MCG/ML-NS 10MLSYR (1MG/10ML) ONE (10:50)
[2025-07-07] MEDS ORDERED: Dexamethasone Sod Phos 10 MG/ML 1ML VIAL ONE (10:53)
[2025-07-07] MEDS ORDERED: ePHEDrine Sulfate 50 MG/ML 1ML Injection ONE (10:55)
[2025-07-07] MEDS ORDERED: HYDROmorphone HCl/Pf 1MG SYR ONE ×2 (11:17→12:54)
[2025-07-07] MEDS ORDERED: Ondansetron HCl 2 MG / ML 2ML Vial ONE (12:17)
[2025-07-07] MEDS ORDERED: HYDROmorphone HCl/Pf 1MG SYR IV PRN ×3 (12:35→13:00)
[2025-07-07] MEDS ORDERED: FLU VACC TS2025(65UP)/MF59C/PF 45 MCG/0.5 ML SYRINGE IM SCH (12:35)
[2025-07-07] MEDS ORDERED: Magnesium Hydroxide Conc 10 ML UDC PO PRN (12:35)
[2025-07-07] MEDS ORDERED: Ondansetron HCl 2 MG / ML 2ML Vial IV PRN ×2 (12:40→12:55)
[2025-07-07] MEDS ORDERED: Prochlorperazine Edisylate 10 mg Vial IV PRN (12:40)
[2025-07-07] MEDS ORDERED: Metoclopramide HCl 5MG / ML 2ML Vial IV PRN (12:40)
[2025-07-07] MEDS ORDERED: Albuterol 2.5 MG/3 ML VIAL INH PRN (12:55)
[2025-07-07] MEDS ORDERED: FentaNYL Citrate 50 MCG/ML 2 ML Injection IV PRN ×2 (12:55→13:00)
[2025-07-07] MEDS ORDERED: Albuterol 2.5 MG/3 ML VIAL ONE (12:58)
[2025-07-07] MEDS ORDERED: Tranexamic Acid 100 ML IV ONE (14:00)
--- NOTE | 2025-07-07 14:06 | NUR ---
07/07/25 1406 Chris Juarez BREATHING TREATMENT STARTED AT 1310 COMPLETED WITH NO ISSUES, PT SATURATION IN MID 90S LUNGS STILL SOUND DIMINISHED WITH SOME COARSE CRACKLING, PT HAS COPD
--- NOTE | 2025-07-07 14:32 | NUR ---
POST-OP PATIENT IS AOX3-4 DROWSY AND FALLS ASLEEP WHILE TALKING. RR 10-12, ON 4L NC. SPO2 90%. CONT. PULSE OX PLACED. REPORTS 9/[address]ACK IN PL[address]. BP STABLE HR TACHY IN LOW 100S. POST OP VITALS CONTINUE.
[2025-07-07] MEDS ORDERED: ASPI81CH PO (14:59)
--- NOTE | 2025-07-07 16:52 | NUR ---
SUMMARY PATIENT UP IN CHAIR, TOELRATING PO INTAKE, VOIDING. DENIES N/V. MEDICATED PER EMAR FOR PAIN. LEFT SHOULDER INCISION IS C/D/I. ABLE TO MAKE NEEDS KNOWN. ON 3L NC, REPORTS HAVING O2 AT HOME BUT DOES NOT USE IT. HX OF COPD. ENCOURAGED COUGH/DEEP BREATHING.
[2025-07-07] MEDS ORDERED: Ketorolac Tromethamine 15mg Vial IV SCH (18:00)
--- NOTE | 2025-07-07 18:48 | NUR ---
DISCHARGE PATIENT IS AOX4. PAIN MANAGED WITH PO MEDS, VOIDING, WORKS WITH OT. DENIES N/T. IV IS DC'D INTACT, PATIENT IS WHEELED OUT TO [employer] WITH ALL DC INSTRUCTIONS READ AND SIGNED.
[2025-07-07] MEDS ORDERED: CeFAZolin Sodium 2,000 MG in NS 100 ML IV SCH (19:00)
== END 2025-07-07 18:32 | disposition home or self-care (01) | DRG 483 ==
LOC: ORSCMMR 08:57 → ORD 10:45 → ORSCMMR 12:28 → SURS 12:28
PROVIDERS: ADMIT Orthopaedic Surgery
PROC: 0RRK00Z Replacement of Left Shoulder Joint with Reverse Ball and Socket Synthetic Substitute, Open Approach (ICD-10-PCS; principal; 2025-07-07 10:45)
DX: M19.012 Primary osteoarthritis, left shoulder (principal); M25.712 Osteophyte, left shoulder; J44.9 Chronic obstructive pulmonary disease, unspecified; F32.A Depression, unspecified; F41.9 Anxiety disorder, unspecified; E78.5 Hyperlipidemia, unspecified; N18.9 Chronic kidney disease, unspecified; I12.9 Hypertensive chronic kidney disease with stage 1 through stage 4 chronic kidney disease, or unspecified chronic kidney disease; Z96.643 Presence of artificial hip joint, bilateral; Z96.611 Presence of right artificial shoulder joint; Z79.1 Long term (current) use of non-steroidal anti-inflammatories (NSAID); Z88.0 Allergy status to penicillin; Z99.81 Dependence on supplemental oxygen; Z88.6 Allergy status to analgesic agent
CPT/HCPCS: 73030; 97165; 97530; A9270; J0166; J0690; J0735; J1100; J1171; J1885; J2250; J2371; J2405; J2704; J2795; J3010; J3475; J7120

== ENCOUNTER → 2025-07-19 | Outpatient (CLI) | payer OTHER ==
[~2025-07-19] MED LIST changes: -CeFAZolin Sodium 2,000 MG in NS 100 ML IV SCH; -Chlorhexidine Mouth Care 15 ML UDC MT SCH; -Tranexamic Acid 100 ML IV SCH
[2025-07-19 15:18] LABS: BASOPHILS ABSOLUTE AUTO 0.03 K/mm3 (0.00-0.23); BASOPHILS PERCENT AUTO 0 % (0-2); EOSINOPHILS ABSOLUTE AUTO 0.14 K/mm3 (0.00-0.68); EOSINOPHILS PERCENT AUTO 2 % (0-6); Hematocrit 36.0 % (33.0-51.0); Hemoglobin 11.4 g/dL (11.5-16.0); IMMATURE GRAN ABSOLUTE AUTO 0.02 K/mm3 (0.00-0.10); IMMATURE GRAN PERCENT AUTO 0 % (0-1); LYMPHOCYTES ABSOLUTE AUTO 1.15 K/mm3 (0.84-5.20); LYMPHOCYTES PERCENT AUTO 14 % (21-46); MONOCYTES ABSOLUTE AUTO 0.60 K/mm3 (0.16-1.47); MONOCYTES PERCENT AUTO 7 % (4-13); Mean Corpuscular HGB Conc 31.7 g/dL (31.5-36.5); Mean Corpuscular Volume 95 fL (80-100); NEUTROPHILS ABSOLUTE AUTO 6.51 K/mm3 (1.96-9.15); NEUTROPHILS PERCENT AUTO 77 % (41-73); NRBC ABSOLUTE 0.00 K/mm3 (0.00-0.02); NRBC Auto 0.0 /100 WBC (0.0-0.2); Platelet Count 264 K/mm3 (150-400); RDW Coefficient Variation 13.2 % (11.7-14.2); RDW Standard Deviation 46.3 fL (35.1-46.3)
[2025-07-21 07:07] LABS: HEPATITIS C AB CIA INTERP Negative (Negative); HEPATITIS C ANTIBODY CIA INDEX 0.04 IV
[2025-07-21 07:43] LABS: HIV 1,2 COMBO ANTIGEN/ANTIBODY Negative (Negative)
== END | disposition home or self-care (01) ==
LOC: LAB SHORT 12:40 → LAB 12:40
PROVIDERS: Student in an Organized Health Care Education/Training Program
DX: Z11.4 Encounter for screening for human immunodeficiency virus [HIV] (principal); Z11.59 Encounter for screening for other viral diseases; D51.0 Vitamin B12 deficiency anemia due to intrinsic factor deficiency
CPT/HCPCS: 82607; 82746; 85025; 86340; 86803; 87389